=== PATIENT | male | born 1960 | race Caucasian/White ===

== ENCOUNTER 2017-03-02 13:44 | Inpatient (IN) | payer OTHER ==
[~2017-03-02] VITALS: Ht 175.3 cm; Wt 67.6 kg
--- NOTE | ~2017-03-02 | EKG ---
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
--- NOTE | ~2017-03-02 | HC ---
[facility] [place] [address] CONSULTATION Name: AUBREY TEAGUE Room #: 463-P [facility] IN M.R.#: [id number] Admission: 03/02/17 Attend Phys: Lakia Guerrero Discharge: 03/06/17 Date of : 56 Report #: [id number] THIS REPORT FOR: //name// CC: Nerissa Guerrero DATE OF CONSULT: 03/05/2017 HISTORY OF PRESENT ILLNESS: We were asked to see the patient by Dr. Miller. The patient is a 56-year-old with a loculated right pleural effusion. The patient was admitted on March 02 with complaints of cough and shortness of breath. We note the patient is status post right lower lobe lung resection in May 2016. This was done at [facility], according to the patient, and I have no specific information regarding his diagnosis, stage, or treatment beyond that. In any event, the patient presented to this institution. The patient was walking to the bus stop when he suddenly developed shortness of air. He called the emergency medical service and was transported to the Emergency Department. He states that his breathing improved at this place. He says that he is short of breath and that it "comes and goes." There is no history of fever, sputum production by my history, hemoptysis, or weight loss or change in appetite. PAST MEDICAL HISTORY: Includes chronic obstructive pulmonary disease, sleep apnea, bradycardia, gastroesophageal reflux disease, depression, anxiety, migraines, type 2 diabetes, hypertension, hyperlipidemia. ALLERGIES: TESSALON PERLES. MEDICATIONS: Includes Zofran, prednisone, fluticasone, salmeterol, ipratropium, albuterol, Cyclobenzaprine, metformin, amitriptyline, simvastatin, Lotensin, Celexa, clonazepam, famotidine, hydrocodone, aspirin. SOCIAL HISTORY: Past use of cigarettes, says he quit in May. Alcohol, denies. FAMILY HISTORY: Not significant. REVIEW OF SYSTEMS: CONSTITUTIONAL: Denies fever, chills, weight change. EYES: No vision changes, no eye pain. HEENT: Complains about ear wax buildup and recent headache. NECK: No neck pain, neck stiffness, sore throat. RESPIRATORY: As mentioned, shortness of breath and cough, no sputum production reported. CARDIAC: No angina, no palpitations. GASTROINTESTINAL: No nausea, vomiting, diarrhea or blood. GENITOURINARY: No burning, frequency, urgency or blood. MUSCULOSKELETAL: No back pain, muscle pain, joint pain. [address] [address] CONSULTATION Name: AUBREY TEAGUE Room #: 463-P [facility] IN M.R.#: [id number] Admission: 03/02/17 Attend Phys: Lakia Guerrero Discharge: 03/06/17 Date of : 56 Report #: [id number] SKIN: No rash or infection. NEUROLOGIC: As mentioned, headache. No motor or sensory dysfunction. HEMATOLOGIC: No swelling, no anemia. PHYSICAL EXAMINATION: VITAL SIGNS: Temperature 37.1, pulse rate 60, blood pressure 117/76, O2 sat 98 on room air. GENERAL: The patient is in bed, in no obvious distress. HEENT: No scleral icterus, no arcus, normocephalic, gaze conjugate. NECK: No lymphadenopathy, no bruit. CHEST: Clear to auscultation. No adventitious sounds. Well healed right posterolateral thoracotomy incision. CARDIOVASCULAR: Regular, no murmurs. ABDOMEN: Soft, no mass, no tenderness. EXTREMITIES: No clubbing, cyanosis or edema, 2+ distal pulses. NEUROLOGIC: No motor or sensory dysfunction. PSYCHIATRIC: The patient is somewhat contentious in my opinion and gives concrete answers, does respond to questions appropriately, but with a bit of an edge, seems to know where he is and is oriented otherwise. I reviewed the CT scan. There is a loculated pleural effusion in the lowest portion of the chest with some small air bubbles in it. However, the patient is not febrile and white blood cell count is not elevated. We do not have any studies between the current studies and studies before surgery. It is not clear that this is a new finding since surgery or rather could this be some sort of loculated effusion inadequately drained at that time. In any event, the patient does not appear to be sick in the sense that he does not have any fever, white blood cell count, obvious pulmonary dysfunction, evidence of malnutrition or concomitance of chronic disease such as lassitude and wasting. As such, I think it would be appropriate to follow this patient for now rather than perform surgery for what would purely be a radiologic indication. It is a privilege to participate in this challenging patient's care. Thank you for the consult. <ELECTRONICALLY SIGNED> By: Flaco Bartlett MD 03/09/17 1413 1029 1247 Flaco Bartlett MD /nt
--- NOTE | ~2017-03-02 | HC ---
[facility] [place] [address] CONSULTATION Name: AUBREY TEAGUE Room #: 463-P ADM IN M.R.#: [id number] Admission: 03/02/17 Attend Phys: Lakia Guerrero Discharge: Date of : 56 Report #: [id number] THIS REPORT FOR: //name// CC: Nerissa Guerrero INFECTIOUS DISEASES CONSULTATION REASON FOR CONSULTATION: I was asked to evaluate concerning possible right chest empyema. HISTORY OF PRESENT ILLNESS: The patient was a 56-year-old with history of COPD and lung cancer, status post right lower lobectomy in May of 2016. He presented with acute onset of shortness of breath, diaphoresis and headache. He called 911 and was then brought into the emergency room. He had evidence of a right chest loculated effusion. CT scan of the chest showed evidence of an effusion on the right with some scattered gas. He has had a previous right lower lobe resection for his lung cancer. Also evident on CT scan was mucus plugging in the right middle lobe. Apparently, he has been in remission since his lobectomy. No further chemotherapy. He is a past smoker. Denies any fever, chills or sweats. He has had no travel. No history of tuberculosis or HIV. ALLERGIES: TESSALON PERLES. MEDICATIONS: As noted on his MAR. Now on Zosyn. He was on prednisone 20 mg a day prior to his admission. PAST MEDICAL HISTORY: As noted above, with the addition of obstructive sleep apnea, bradycardia, gastroesophageal reflux, depression, anxiety, migraine headaches, diabetes, hypertension, hyperlipidemia, bilateral inguinal herniorrhaphy and umbilical herniorrhaphy. FAMILY HISTORY: Noncontributory. SOCIAL HISTORY: Smoked cigarettes. No significant alcohol intake. REVIEW OF SYSTEMS: No nausea, vomiting, diarrhea, dysuria or frequency. PHYSICAL EXAMINATION: VITAL SIGNS: Afebrile and hemodynamically stable on room air. GENERAL: He was in no distress. He just came back from a right chest thoracentesis which only produced a few drops of bloody fluid. LUNGS: He had decreased breath sounds on the right posterior chest. HEART: Regular. NECK: No adenopathy. SKIN: Unremarkable. [facility] [address] [place] [address] CONSULTATION Name: AUBREY TEAGUE Room #: 463-P [facility] IN .R.#: [id number] Admission: 03/02/17 Attend Phys: Lakia Guerrero Discharge: Date of : 56 Report #: [id number] HEENT: Unremarkable. ABDOMEN: Soft, nontender. No hepatosplenomegaly or mass. EXTREMITIES: Unremarkable. NEUROLOGICAL EXAMINATION: Normal. LABORATORY STUDIES: CT as noted above. Sodium 141, potassium 3.9, bicarbonate 24 and creatinine 0.6. Hemoglobin 16, white count 6.9 and platelet count 167,000. IMPRESSION AND PLAN: A 56-year-old with acute shortness of breath and finding of loculated right pleural effusion with evidence of gas in the region. We would be concerned about empyema or relapse of malignancy in this area. We will await aspiration of the fluid. I would consider CT-guided aspiration if the initial studies are unremarkable. Continue Zosyn for now. We will also check HIV, T-SPOT and sedimentation rate. <ELECTRONICALLY SIGNED> By: Gigi Miller MD 03/04/17 0933 1811 0113 Gigi Miller MD /nt
[~2017-03-02 13:44] MED LIST: ACID CONTROL20 MG PO; ADULT LOW DOSE81 MG PO; ADVAIR HFA 230M12 GM INH; AMITRIPTYLINE H25 M2 PO; AMOXICILLIN 50500 M1 PO; AMOXICILLIN500 M1 PO; ANTIVERT12.5 MG PO; ANTIVERT25 M1 PO; ASPIR 8181 M1; ASPIR 8181 MG PO; ASPIR-LOW81 MG PO; ASPIRIN EC81 M1 PO; ASPIRIN325 OR; BACTRIM DS TAB1 EACH PO; BENAZEPRIL HCL10 MG PO; BUTALB-ACETAMI1 EACH PO; CEFUROXIME250 MG PO; CELEBREX50 MG; CELEXA 20 MG TA20 M1 PO; CIPRODEX OTIC7.5 ML OTIC; CIPROFLOXACIN500 M1 PO; CIPROFLOXACIN500 M3 PO; CITRATE OF MAG296 ML PO; CLONAZEPAM 0.50.5 M1 PO; CLONAZEPAM 1 MG1 M1 PO; COLACE100 MG PO; COMBIVENT INH; COREG6.25 MG PO; DOXYCYCLINE 10100 M1 PO; ERYTHROMYCIN E3.5 G1 OP; FAMOTIDINE 20 M20 MG PO; FAMOTIDINE20 MG PO; FLEXERIL PO; GLUCOPHAGE500 MG PO; HYDROCODON-ACE1 EAC5 PO; IBUPROFEN 600600 M1 PO; IBUPROFEN 800800 M1 PO; IBUPROFEN 800800 MG PO; KETOROLAC TROME10 MG PO; LIPITOR10 MG; LISINOPRIL20 MG; MECLIZINE 25 MG25 M1 PO; MUCINEX DM TABL1 TA1 PO; NAPROSYN500 MG PO; NEXIUM40 MG PO; NITROGLYCERIN0.4 MG SL; NOHOMEMEDICATIONS; NORCO 10-325 T1 EACH PO; NORCO 5-325 TA1 EACH PO; OMEPRAZOLE 20 M20 M1; PEPCID20 MG PO; PREDNISONE 20 M20 M1 PO; PREDNISONE 20 M20 MG PO; PREDNISONE50 MG PO; PROTONIX40 MG PO; PROVENTIL HFA6.7 G1 INH; PYRIDIUM200 MG PO; SIMVASTATIN20 MG PO; TORADOL 10 MG T10 MG PO; TRAMADOL 50 MG50 MG; TRAMADOL 50 MG50 MG PO; TRIAMCINOLONE A15 G1 TP; ULTRAM 50MG TAB50 MG PO; VENTOLIN HFA 1818 GM INH; VENTOLIN HFA 1818 GM PO; VISTARIL 25 MG25 M1; ZOFRAN ODT4 MG PO; ZPAK PO
[2017-03-02 13:47] VITALS: BP 132/83
[2017-03-02 14:35] LABS: ABSOLUTE NEUTROPHILS 4.7 thou/uL (1.4-8.2); BASOPHILS 0.4 % (0.0-2.0); EOSINOPHILS 1.9 % (0.0-3.0); HEMATOCRIT 45.8 % (42.0-52.0); HEMOGLOBIN 16.1 gm/dL (14.0-18.0); LYMPHOCYTES 19.1 % (24.0-44.0); MANUAL DIFF NO; MCH 32.9 pg (26.0-34.0); MCHC 35.2 g/dL (28.0-37.0); MCV 93.7 fL (80.0-100.0); MONOCYTES 10.8 % (1.0-8.0); PLATELET COUNT 167 thou/uL (150-400); POLYS 67.8 % (36.0-66.0); RBC 4.89 mil/uL (4.50-6.00); RDW 14.2 % (10.5-14.5); WBC 6.9 thou/uL (4.0-11.0)
[2017-03-02 14:46] LABS: ANION GAP 9 mmol/L (7-16); BUN 20 mg/dL (7-18); CALCIUM 8.9 mg/dL (8.5-10.1); CHLORIDE 108 mmol/L (98-107); CO2 24 mmol/L (21-32); CREATININE 0.6 mg/dL (0.7-1.3); GLUCOSE 111 mg/dL (74-106); POTASSIUM 3.9 mmol/L (3.5-5.1); SODIUM 141 mmol/L (136-145); TROPONIN-I < 0.04 ng/mL (<0.04-0.07)
[2017-03-02 16:59] LABS: APTT 27.3 Seconds (24.5-32.8); PROTIME 10.4 Seconds (9.3-11.4)
[2017-03-02 17:29] VITALS: BP 128/79
[2017-03-02 19:30] VITALS: BP 123/78
[2017-03-02 23:06] VITALS: BP 110/69
[2017-03-03 04:03] VITALS: BP 102/61
[2017-03-03 06:08] LABS: GLYCOHEMOGLOBIN (HGB A1C) 5.4 % (4.8-5.6)
[2017-03-03 08:04] VITALS: BP 115/76
[2017-03-03 16:11] VITALS: BP 109/66
[2017-03-03 19:55] VITALS: BP 119/63
[2017-03-04 05:00] VITALS: BP 113/64
[2017-03-04 05:10] VITALS: BP 132/64
[2017-03-04 07:50] VITALS: BP 129/71
[2017-03-04 11:32] VITALS: BP 127/71
[2017-03-04 13:09] LABS: HIV ANTIBODY Non Reactive (Non Reactive)
[2017-03-04 16:07] VITALS: BP 124/79
[2017-03-04 19:40] VITALS: BP 139/73
[2017-03-05 03:45] VITALS: BP 102/72
[2017-03-05 09:01] VITALS: BP 114/77
[2017-03-05 12:37] VITALS: BP 117/76
[2017-03-05 15:44] VITALS: BP 132/75
[2017-03-05 19:59] VITALS: BP 131/75
[2017-03-06 03:17] VITALS: BP 114/68
[2017-03-06 08:00] VITALS: BP 126/84
[2017-03-06] MEDS ORDERED: AUGMENTIN 875875 MG PO (09:30)
[2017-03-06] MEDS ORDERED: CODEINE-GUAIFE120 ML PO (09:41)
[2017-03-06 10:03] VITALS: BP 126/84
[2017-03-09 09:16] LABS: NIL (NEGATIVE) CONTROL SPOT CT 0; PANEL A SPOT CT 0; PANEL B SPOT CT 0; POSITIVE CONTROL SPOT COUNT > 20; T-SPOT.TB Negative
== END 2017-03-06 10:37 | disposition home or self-care (01) | DRG 186 ==
LOC: ER 13:44 → 4W 16:33 → EROBS 16:33 → 4W 17:31
PROVIDERS: Emergency Medicine; Hospitalist; Specialist
PROC: 0W993ZX Drainage of Right Pleural Cavity, Percutaneous Approach, Diagnostic (ICD-10-PCS; principal; 2017-03-03)
PROC: BB4BZZZ Ultrasonography of Pleura (ICD-10-PCS; principal; 2017-03-03)
DX: J90 Pleural effusion, not elsewhere classified (principal); E43 Unspecified severe protein-calorie malnutrition; J44.9 Chronic obstructive pulmonary disease, unspecified; K21.9 Gastro-esophageal reflux disease without esophagitis; E78.5 Hyperlipidemia, unspecified; F32.9 Major depressive disorder, single episode, unspecified; F41.9 Anxiety disorder, unspecified; G47.33 Obstructive sleep apnea (adult) (pediatric); G43.909 Migraine, unspecified, not intractable, without status migrainosus; E11.9 Type 2 diabetes mellitus without complications; I10 Essential (primary) hypertension; Z68.22 Body mass index [BMI] 22.0-22.9, adult; Z87.891 Personal history of nicotine dependence; Z88.8 Allergy status to other drugs, medicaments and biological substances; Z85.118 Personal history of other malignant neoplasm of bronchus and lung; Z90.2 Acquired absence of lung [part of]; Z87.01 Personal history of pneumonia (recurrent); Z82.49 Family history of ischemic heart disease and other diseases of the circulatory system; Z83.3 Family history of diabetes mellitus; Z83.6 Family history of other diseases of the respiratory system
CPT/HCPCS: 10045

== ENCOUNTER 2017-05-05 10:33 | Emergency (ER) | payer OTHER ==
[~2017-05-05] VITALS: Ht 175.3 cm; Wt 68.0 kg
--- NOTE | ~2017-05-05 | EKG ---
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
[~2017-05-05 10:33] MED LIST changes: +AUGMENTIN 875875 MG PO; +CODEINE-GUAIFE120 ML PO
[2017-05-05 11:02] LABS: ABSOLUTE NEUTROPHILS 5.8 thou/uL (1.4-8.2); BASOPHILS 0.8 % (0.0-2.0); EOSINOPHILS 1.7 % (0.0-3.0); HEMOGLOBIN 15.3 gm/dL (14.0-18.0); LYMPHOCYTES 16.5 % (24.0-44.0); MCH 33.2 pg (26.0-34.0); MCHC 34.7 g/dL (28.0-37.0); MCV 95.7 fL (80.0-100.0); MONOCYTES 10.4 % (1.0-8.0); PLATELET COUNT 289 thou/uL (150-400); POLYS 70.6 % (36.0-66.0); RBC 4.59 mil/uL (4.50-6.00); RDW 13.9 % (10.5-14.5); WBC 8.3 thou/uL (4.0-11.0)
[2017-05-05 11:06] LABS: MANUAL DIFF NO
[2017-05-05 11:08] LABS: ANION GAP 5 mmol/L (7-16); BUN 13 mg/dL (7-18); CALCIUM 9.6 mg/dL (8.5-10.1); CHLORIDE 106 mmol/L (98-107); CO2 28 mmol/L (21-32); CREATININE 0.7 mg/dL (0.7-1.3); GLUCOSE 142 mg/dL (74-106); POTASSIUM 3.7 mmol/L (3.5-5.1); SODIUM 139 mmol/L (136-145)
[2017-05-05 11:16] LABS: TROPONIN-I < 0.04 ng/mL (<0.04-0.07)
[2017-05-05] MEDS ORDERED: NORCO 5-325 TA1 EACH PO (12:22)
[2017-05-05] MEDS ORDERED: PREDNISONE 10 M10 MG PO (12:31)
[2017-05-05 12:38] VITALS: BP 125/85
== END 2017-05-05 12:42 | disposition home or self-care (01) ==
LOC: ER 10:33
PROVIDERS: Emergency Medicine
DX: R06.02 Shortness of breath (principal); M54.9 Dorsalgia, unspecified; J44.9 Chronic obstructive pulmonary disease, unspecified; K21.9 Gastro-esophageal reflux disease without esophagitis; F41.9 Anxiety disorder, unspecified; F32.9 Major depressive disorder, single episode, unspecified; E11.9 Type 2 diabetes mellitus without complications; I10 Essential (primary) hypertension; E78.5 Hyperlipidemia, unspecified; Z98.890 Other specified postprocedural states; Z88.8 Allergy status to other drugs, medicaments and biological substances; Z87.891 Personal history of nicotine dependence

== ENCOUNTER 2017-05-11 15:33 | Inpatient (IN) | payer OTHER ==
[~2017-05-11] VITALS: Ht 175.3 cm; Wt 67.5 kg
--- NOTE | ~2017-05-11 | 2DMMODE ---
[facility] [place] [address] 2 D/M-MODE ECHOCARDIOGRAM Name: AUBREY TEAGUE Room #: 450-P ADM IN M.R.#: [id number] Admission: 05/11/17 Attend Phys: Den Pillai Discharge: Date of : 56 Date of Service: 05/12/17 1643 Report #: [id number] THIS REPORT FOR: //name// ADDENDUM APPROVED REPORT Study performed: 05/12/2017 08:50:46 EXAM: Comprehensive 2D, Doppler, and color-flow Echocardiogram Patient Location: Bedside Room #: [facility] Status: routine Other Information Study Quality: Good Indications CVA/TIA Hx COPD, DM, HTN, HLP Tricuspid Valve RAP Estimate: 5.00 mmHg TR Peak Gr.: 21.00 mmHg PA Pressure: 26.00 mmHg Left Ventricle The left ventricle is normal size. There is normal LV segmental wall motion. Mild concentric left ventricular hypertrophy. The left ventricular systolic function is normal. The left ventricular ejection fraction is within the normal range. LVEF is 55-60%. Grade I - abnormal relaxation pattern. Right Ventricle The right ventricle is normal size. The right ventricular systolic function is normal. Atria The left atrium size is normal. Injection of bubbles documented no interatrial shunt. The right atrium size is normal. Aortic Valve Aortic valve leaflets are mildly sclerotic Trace aortic regurgitation. There is no aortic valvular stenosis. Mitral Valve The mitral valve is normal in structure. Trace mitral regurgitation. [facility] [address] [place] [address] 2 D/M-MODE ECHOCARDIOGRAM Name: AUBREY TEAGUE Room #: [facility]- ADM IN M.R.#: [id number] Admission: 05/11/17 Attend Phys: Den Pillai Discharge: Date of : 56 Date of Service: 05/12/17 1643 Report #: [id number] No evidence of mitral valve stenosis. Tricuspid Valve The tricuspid valve is normal in structure. Trace tricuspid regurgitation. Pulmonic Valve The pulmonary valve is normal in structure. Trace pulmonic regurgitation. Great Vessels The aortic root is normal in size. The ascending aorta is normal in size. IVC is normal in size and collapses >50% with inspiration. Pericardium There is no pericardial effusion. <Conclusion> The left ventricular systolic function is normal. There is normal LV segmental wall motion. LVEF is 55-60%. Grade I diastolic dysfunction Aortic valve leaflets are mildly sclerotic, no aortic valvular stenosis. The mitral valve is normal in structure. trace mitral regurgitation. Pulmonary artery pressure could not be reliably ascertained There is no pericardial effusion. Addendum: Contrast bubble injection demonstrated right to left shunting consistent with a patent foramen ovale <ELECTRONICALLY SIGNED> By: Abimael Montano MD, [facility] 05/12/171642 42 42 Abimael Montano MD, [facility] /INF
--- NOTE | ~2017-05-11 | EKG ---
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
--- NOTE | ~2017-05-11 | HC ---
[facility] [place] [address] CONSULTATION Name: AUBREY TEAGUE Room #: 450- ADM IN M.R.#: [id number] Admission: 05/11/17 Attend Phys: Edwin Camp MD Discharge: Date of : 56 Report #: [id number] THIS REPORT FOR: //name// CC: Nerissa Camp DATE OF CONSULTATION: 05/11/2017. HISTORY OF PRESENT ILLNESS: This is a 56-year-old male patient who was evaluated by me as a stroke protocol. The first call I got this patient was around 5:15 or so. The patient was described to me as paresthesias and some numbness on the left side with NIH stroke scale of 2. I told them that I will come and evaluate him immediately to determine if he is a TPA candidate. I went to the Emergency Room within a few minutes when the patient had gone for a CT angio and I could not see him. I asked them to call me back and page me when he comes back from CT angio, but I did not hear back and came back to emergency to check on him, but I was told that he has gone for MRI. So, I could not see this patient till the MRI is done, but since then I have seen the patient, I have reviewed the CT scan films, I have reviewed a CT angio, CT perfusion and MRI of the brain. I have discussed this patient with Dr. Camp. The patient's history is not clear. He initially told Dr. Camp that the symptoms are going on from 2:30, but when I asked him, he said symptoms may have been going longer than that. So time of onset is not clear in spite of the fact this patient initially indicated that it was around 2:30, but it could have been even prior to that. His symptoms are mostly the numbness on the left side. They had noticed hemianopsia, but I am not certain about hemianopsia because on my repeated examination, he does not have any hemianopsia. He does not complain of any neck pain, but is complaining of some pain in the lower back area. He indicates the pain is moderately severe. He indicated that he still has some weakness on the left side. REVIEW OF SYSTEMS: Indicate that he has COPD. He has sleep apnea. He denies any depression and anxiety to me, but to Dr. Camp he has indicated that he has depression, anxiety. He has diabetes. He said he does not get hypoglycemia. He does have a history of hyperlipidemia and hypertension. Blood pressure here is normal. This was his relevant 14-point review of system. PAST MEDICAL HISTORY: Positive for COPD and smoking. FAMILY HISTORY: Negative for early age stroke. SOCIAL HISTORY: He used to smoke, but does not smoke anymore, his lung was partly removed because of cancer in [facility] last year. He does not have any history of alcohol abuse. PHYSICAL EXAMINATION: Indicate that I examined him multiple time, he is alert and responsive, he can follow simple commands. His speech, concentration, fund [facility] [address] [place] [address] CONSULTATION Name: HOAUBREY MICKEY Room #: 450-P [facility] IN M.R.#: [id number] Admission: 05/11/17 Attend Phys: Edwin Camp MD Discharge: Date of : 56 Report #: [id number] of knowledge and memory is at his baseline. Cranial nerve examination appear unremarkable. He has no facial weakness. He did have some weakness on the left upper and left lower extremity, but he can move it against gravity. He indicates he can appreciate the position sense, it feels different on the left side as compared to the right side. His reflexes are symmetrical. He does not have any clear cut cerebellar sign. His heart sounds are unremarkable and there is really no murmur there. He does have some rhonchi, but no respiratory difficulty. He is an average built individual who does not have any dysmorphic features of eyes, ears and face. His hearing is adequate, his vision is adequate, he has no meningeal sign. His blood pressure is 122/74, respiration is 20, and pulse is 80. LABORATORY DATA: Indicate a white count of 11.2. His sodium is 138. CT angiogram was reviewed and I reviewed the MRI and he has no evidence of any stroke on any of those images. IMPRESSION AND PLAN: 1. This patient presented with a stroke-like symptoms. Time of onset is not totally clear. It is either 2:30 or earlier than that. First time I was able to see this patient was around 6:30 or so. I reviewed all his films. I do not see any evidence of any abnormalities on those films neither does the radiologist. I did discuss with him that he does have an option of TPA, but his deficit is mild, and he does not have any evidence for a stroke and he decided to stay without TPA. That is a reasonable approach, although it is very difficult to be certain on this patient. We will give him some fluid to increase his blood pressure somewhat. I asked the nurses to do the bed side swallow and then that can feed him. We will watch him closely. I will go ahead and do an MRI of the C-spine in this patient. 2. He is complaining of multiple other symptoms including pain in the back and I will defer that evaluation and management to the admitting physician. Patient was seen multiple times after that and his exam is mostly unchanged but impersistent. Talked to and checked out to Dr Zepeda this morning. More than 50 minutes of face to face time was spent taking care of this patient and majority of that time was spent counseling this patient on multiple occasions about his tests his options Thank you very much for this referral. <ELECTRONICALLY SIGNED> By: Bob Dickinson MD 05/12/17 1017 [id number] Bob Dickinson MD /nt
--- NOTE | ~2017-05-11 | H ---
[facility] [place] [address] HISTORY AND PHYSICAL Name: AUBREY TEAGUE Room #: 450-P [facility] M.R.#: [id number] Admission: 05/11/17 Attend Phys: Edwin Camp MD Discharge: Date of : 56 Report #: [id number] THIS REPORT FOR: //name// CC: Nerissa King DO Edwin Camp DATE OF SERVICE: 05/11/2017 CHIEF COMPLAINT: Left-sided numbness and left-sided weakness. HISTORY OF PRESENT ILLNESS: The patient is a 56-year-old male with history of hypertension, diabetes, COPD, quit smoking a year ago, presented to the emergency room complaining of left-sided numbness and weakness. Symptoms started at around 2:30 p.m. while walking to the bus stop. On arrival to the emergency room, he had numbness in his left upper and lower extremity. His weakness was 4/5 in upper and lower extremity. Initially, a stroke code was called. I did discuss this with Dr. Clark in the emergency room and he has planned to talk to neurologist vault person again. The patient denies any headache, no visual disturbance. No facial asymmetry. No speech disturbance. PAST MEDICAL HISTORY: Significant for COPD, sleep apnea, bradycardia, gastroesophageal reflux disease, depression, anxiety, migraine, type 2 diabetes, hypertension, and hyperlipidemia. PAST SURGICAL HISTORY: Includes bilateral inguinal hernia repair, umbilical hernia repair, and right lung removed on 06/12/2016. ALLERGIES: To TESSALON PERLES. HOME MEDICATIONS: Reviewed, please look at the nursing documentation. SOCIAL HISTORY: Used to smoke a pack a day for several years, stopped smoking 1 year ago. No history of alcohol abuse or illicit drug abuse. FAMILY HISTORY: Significant for hypertension and diabetes. REVIEW OF SYSTEMS: CONSTITUTIONAL: No fever or chills. No visual changes. No weight loss or weight gain. THROAT: Denies any sore throat. CARDIOVASCULAR: No chest pain, dizziness, or palpitations. RESPIRATORY: No cough or expectoration. GASTROINTESTINAL: No nausea, vomiting, or abdominal pain. GENITOURINARY: No dysuria or hematuria. NEUROLOGIC: As above. [facility] [address] [place] [address] HISTORY AND PHYSICAL Name: AUBREY TEAGUE Room #: [address] [place] [address].#: [id number] Admission: 05/11/17 Attend Phys: Edwin Camp MD Discharge: Date of : 56 Report #: [id number] PSYCHIATRIC: No anxiety or depression. SKIN: The patient complains of rash in his upper and lower extremities for the last 2 weeks, has been associated with itching. The 12-point review of system is negative other than the positive and negative dictated in the history of present illness and the review of system. PHYSICAL EXAMINATION: VITAL SIGNS: Blood pressure is 130/88, heart rate of 75 per minute, afebrile. GENERAL: The patient is awake and alert, not in acute respiratory distress. EYES: Pupils are equal and reactive to light. THROAT: Appears normal. NECK: Supple, no JVD, no bruit, no lymphadenopathy. CARDIOVASCULAR SYSTEM: S1, S2, negative S3, no murmur. CHEST: Bilateral air entry present. Clear on auscultation. ABDOMEN: Soft, bowel sounds present, no mass, no organomegaly, no tenderness. PERIPHERY: No pedal edema. No calf tenderness. Dorsalis pedis 1+. NEUROLOGIC: No facial asymmetry noted. Pupils are equal and reactive to light. Extraocular movements are intact. Power is 5/5 in upper and lower extremity on the right side. On the left side, his power is 4/5 in upper and lower extremities. LABORATORY DATA: Reviewed. His white count is 11.2, normal hemoglobin, hematocrit and platelets. His chemistry showed a potassium of 3.7, blood glucose was 99. AST and ALT are within normal limit. CT of the brain showed no acute abnormality. Chest x-ray showed moderate inspiration, mild basilar atelectasis, possible small right effusion. EKG shows sinus rhythm, minimal ST elevation in anterior lead. No significant T-wave changes. ASSESSMENT: 1. Left-sided numbness and weakness, possible transient ischemic attack/cerebrovascular accident. Dr. Clark will be contacting the neurologist to discuss about possible TPA. The patient will be admitted to telemetry, will undergo stroke workup including MRI/MRA of the brain, carotid Doppler and echocardiogram, he will be placed on frequent neuro check. We will also consult physical and occupational therapy and speech therapy. We will check his lipids in the morning. 2. Diabetes. Check A1c level. He will also be placed on a sliding scale insulin. The patient will be continued on his metformin. 3. Skin rash. He has allergic rash. There is a maculopapular rash on his upper and lower extremities. It is not very clear what he is allergic to. We will start him on p.o. prednisone and p.r.n. Benadryl. 4. Deep venous thrombosis prophylaxis, SCD on the legs have been ordered for deep venous thrombosis prophylaxis. [facility] [address] [place] [address] HISTORY AND PHYSICAL Name: AUBREY TEAGUE Room #: 450-P [facility] Rolando#: [id number] Admission: 05/11/17 Attend Phys: Edwin Capm MD Discharge: Date of : 56 Report #: [id number] 5. History of hypertension. We will monitor closely hypertension because of possibility of cerebrovascular accident. Treatment plan has been explained to the patient in detail. 6. Chronic obstructive pulmonary disease. The patient will be continued on his present Combivent and Advair. <ELECTRONICALLY SIGNED> By: Edwin Camp MD 05/11/17 [id number] 181 Edwin Camp MD /nt
[~2017-05-11 15:33] MED LIST changes: +PREDNISONE 10 M10 MG PO
[2017-05-11 15:36] VITALS: BP 131/90
[2017-05-11 16:03] LABS: ABSOLUTE NEUTROPHILS 8.3 thou/uL (1.4-8.2); BASOPHILS 0.6 % (0.0-2.0); HEMATOCRIT 46.1 % (42.0-52.0); LYMPHOCYTES 17.1 % (24.0-44.0); MANUAL DIFF NO; MCH 33.2 pg (26.0-34.0); MCHC 34.6 g/dL (28.0-37.0); MONOCYTES 7.5 % (1.0-8.0); PLATELET COUNT 240 thou/uL (150-400); POLYS 73.8 % (36.0-66.0); WBC 11.2 thou/uL (4.0-11.0)
[2017-05-11 16:07] LABS: ANION GAP 5 mmol/L (7-16); BUN 15 mg/dL (7-18); CALCIUM 9.7 mg/dL (8.5-10.1); CHLORIDE 104 mmol/L (98-107); CO2 29 mmol/L (21-32); CREATININE 0.7 mg/dL (0.7-1.3); GLUCOSE 99 mg/dL (74-106); POTASSIUM 3.7 mmol/L (3.5-5.1); SODIUM 138 mmol/L (136-145)
[2017-05-11 16:14] LABS: ALBUMIN 3.9 g/dL (3.4-5.0); ALKALINE PHOSPHATASE 88 U/L (46-116); SGOT 14 U/L (15-37); SGPT 16 U/L (30-65); TOTAL BILIRUBIN 0.4 mg/dL (<0.1-1.0); TOTAL PROTEIN 7.9 g/dL (6.4-8.2); TROPONIN-I < 0.04 ng/mL (<0.04-0.07)
[2017-05-11 18:20] VITALS: BP 122/74
[2017-05-11 19:11] VITALS: BP 130/89
[2017-05-11 23:54] VITALS: BP 103/63
[2017-05-12 03:25] VITALS: BP 98/69
[2017-05-12 06:04] LABS: ABSOLUTE NEUTROPHILS 9.5 thou/uL (1.4-8.2); BASOPHILS 0.1 % (0.0-2.0); EOSINOPHILS 0.2 % (0.0-3.0); HEMATOCRIT 43.8 % (42.0-52.0); LYMPHOCYTES 10.1 % (24.0-44.0); MCH 32.8 pg (26.0-34.0); MCHC 34.3 g/dL (28.0-37.0); MCV 95.5 fL (80.0-100.0); MONOCYTES 1.9 % (1.0-8.0); PLATELET COUNT 218 thou/uL (150-400); POLYS 87.7 % (36.0-66.0); RBC 4.58 mil/uL (4.50-6.00); RDW 13.8 % (10.5-14.5); WBC 10.9 thou/uL (4.0-11.0)
[2017-05-12 06:06] LABS: MANUAL DIFF NO
[2017-05-12 06:10] LABS: GLYCOHEMOGLOBIN (HGB A1C) 5.3 % (4.8-5.6)
[2017-05-12 06:24] LABS: ANION GAP 5 mmol/L (7-16); BUN 22 mg/dL (7-18); CALCIUM 9.1 mg/dL (8.5-10.1); CHLORIDE 101 mmol/L (98-107); CHOLESTEROL 175 mg/dL (<200); CO2 29 mmol/L (21-32); CREATININE 0.8 mg/dL (0.7-1.3); GLUCOSE 142 mg/dL (74-106); HDL CHOLESTEROL 59 mg/dL (>40); LDL CHOLESTEROL 103 mg/dL (<100); MAGNESIUM 2.1 mg/dL (1.8-2.4); SODIUM 135 mmol/L (136-145); TRIGLYCERIDE 67 mg/dL (<150); VLDL 13 mg/dL (<40)
[2017-05-12 06:25] LABS: POTASSIUM 4.7 mmol/L (3.5-5.1); SERUM ASSESSMENT Clear
[2017-05-12 07:56] VITALS: BP 120/77
[2017-05-12 11:54] VITALS: BP 116/74
[2017-05-12 15:53] VITALS: BP 130/72
[2017-05-12 19:18] VITALS: BP 120/74
[2017-05-13 07:08] VITALS: BP 134/84
[2017-05-13 11:38] VITALS: BP 131/86
[2017-05-13] MEDS ORDERED: ASPIRIN EC325 M1 PO (15:22)
[2017-05-13] MEDS ORDERED: GLUCOPHAGE500 MG PO (15:22)
[2017-05-13 15:43] VITALS: BP 123/90
[2017-05-13 17:38] VITALS: BP 123/90
[2017-05-14 16:11] LABS: ALPHA TOCOPHEROL 13.1 mg/L (5.3-17.5); PROTEIN C ANTIGEN* 89 % (60-150)
[2017-05-16 01:10] LABS: DIL. RUSSELL VIPER VENOM 30.4 sec (0.0-47.0)
== END 2017-05-13 17:45 | disposition home or self-care (01) | DRG 69 ==
LOC: ER 15:33 → EROBS 16:57 → 4W 16:57
PROVIDERS: Emergency Medicine; Internal Medicine; Psychiatry & Neurology Neurology
DX: G45.9 Transient cerebral ischemic attack, unspecified (principal); J44.9 Chronic obstructive pulmonary disease, unspecified; K21.9 Gastro-esophageal reflux disease without esophagitis; F32.9 Major depressive disorder, single episode, unspecified; F41.9 Anxiety disorder, unspecified; I10 Essential (primary) hypertension; E78.5 Hyperlipidemia, unspecified; R20.9 Unspecified disturbances of skin sensation; E11.9 Type 2 diabetes mellitus without complications; G43.909 Migraine, unspecified, not intractable, without status migrainosus; Z82.49 Family history of ischemic heart disease and other diseases of the circulatory system; Z88.8 Allergy status to other drugs, medicaments and biological substances; Z83.3 Family history of diabetes mellitus; Z79.899 Other long term (current) drug therapy; Z87.891 Personal history of nicotine dependence; Z79.82 Long term (current) use of aspirin; Z85.118 Personal history of other malignant neoplasm of bronchus and lung; Z92.21 Personal history of antineoplastic chemotherapy; Z92.3 Personal history of irradiation

== ENCOUNTER 2017-07-20 12:30 | Inpatient (IN) | payer OTHER ==
[~2017-07-20] VITALS: Ht 175.3 cm; Wt 78.2 kg
[2017-07-20] VITALS (16 sets, daily range): BP systolic 114–137; BP diastolic 67–93
--- NOTE | ~2017-07-20 | HC ---
[facility] [place] [address] CONSULTATION Name: AUBREY TEAGUE Room #: 239-P ADM IN M.R.#: [id number] Admission: 07/20/17 Attend Phys: Real Jones MD Discharge: Date of : 56 Report #: [id number] THIS REPORT FOR: //name// CC: Nerissa Jones DATE OF SERVICE: 07/21/2017 HISTORY OF PRESENT ILLNESS: The patient is a 56-year-old right-handed white male who is admitted with left-sided numbness, tingling and some discomfort. There was concern regarding a possible stroke and TPA was given. He was noted to have some left shoulder discomfort and apparently he had a fall the night before. He has been seen by Neurology. Working diagnosis is an acute CVA, status post TPA. MRI of the brain is pending. We are seeing him in rehabilitation medicine consultation. PAST MEDICAL HISTORY: Includes hypertension, tobaccoism, COPD, sleep apnea, bradycardic, GERD, depression, anxiety, migraines, hyperlipidemia and right lower lobe lung removed in 05/2016 for cancer. SOCIAL HISTORY: Lives in a house with friends/roommates. Premorbidly independent without gait aids for mobility and ADLs. MEDICATIONS: Please see the full medication listing. HABITS: Positive for tobacco daily, one-half pack per day for 30 years. REVIEW OF SYSTEMS: No current complaints of chest pain, shortness of breath or abdominal discomfort. He thinks he is moving the left side a little better. PHYSICAL EXAMINATION: GENERAL: He is a 56-year-old white male, a little cantankerous but in no obvious distress. VITAL SIGNS: Last recorded temperature 98.1, pulse 57, respirations 19 and blood pressure 113/93. NEUROLOGICAL: He is alert, follows basic commands. EOMs appeared full. Facies are symmetric. He has functional range of motion and strength of the right upper and right lower extremity without obvious focal weakness. He moves the left upper extremity quite well. He may have slight weakness, may be 5-/5, but overall appears reasonably symmetric. I could not detect any obvious focal weakness of the left lower extremity. DTRs were 1. Sensory examination appeared intact to simultaneous stimulation. ASSESSMENT: A 56-year-old white male with the following problem list: 1. Initial left-sided weakness that appears to be improving. 2. MRI of the brain, rule out possible stroke or possible metastasis from his [address] [address] CONSULTATION Name: AUBREY TEAGUE Room #: 239-P [facility] [place] ..#: [id number] Admission: 07/20/17 Attend Phys: Real Jones MD Discharge: Date of : 56 Report #: [id number] history of lung cancer. 3. The patient is status post tissue plasminogen activator. 4. Tobacco abuse. 5. Hypertension. 6. Hyperlipidemia. 7. Chronic obstructive pulmonary disease. 8. Shoulder discomfort, question of a fall prior to admission. PLAN: Neurologic up underway as noted. Therapies will be evaluating him. We will be glad to follow regarding rehab therapy needs. By: [id number] Geremias Bridges MD /
--- NOTE | ~2017-07-20 | EKG ---
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 : 1960 Requested By: Ed Gomez Order Number: [id number] MD: Abimael Montano Measurements Intervals [place] Rate: 80 P: 8 HI: 185 QRS: -19 QRSD: 82 T: 9 QT: 370 QTc: 427 Interpretive Statements Sinus rhythm No significant abnormality Compared to ECG 05/11/2017 16:09:46 No significant change was found Electronically Signed On 07-21-2017 8:23:41 CDT by Abimael Montano [email or web address] <ELECTRONICALLY SIGNED> By: Abimael Montano MD, [facility] 07/21/17 0823 1324 1324 Abimael Montano MD, [facility] /EPI
[~2017-07-20 12:30] MED LIST changes: +ASPIRIN EC325 M1 PO
[2017-07-20 13:24] LABS: ABSOLUTE NEUTROPHILS 5.6 thou/uL (1.4-8.2); EOSINOPHILS 2.5 % (0.0-3.0); HEMATOCRIT 44.4 % (42.0-52.0); HEMOGLOBIN 15.8 gm/dL (14.0-18.0); LYMPHOCYTES 19.4 % (24.0-44.0); MCH 34.2 pg (26.0-34.0); MCHC 35.5 g/dL (28.0-37.0); MCV 96.3 fL (80.0-100.0); MONOCYTES 9.4 % (1.0-8.0); PLATELET COUNT 189 thou/uL (150-400); POLYS 67.7 % (36.0-66.0); RBC 4.61 mil/uL (4.50-6.00); RDW 14.4 % (10.5-14.5); WBC 8.3 thou/uL (4.0-11.0)
[2017-07-20 13:25] LABS: MANUAL DIFF NO
[2017-07-20 13:26] LABS: CALCIUM 9.9 mg/dL (8.5-10.1); CREATININE 0.9 mg/dL (0.7-1.3); POTASSIUM 3.9 mmol/L (3.5-5.1)
[2017-07-20 13:32] LABS: ALBUMIN 3.9 g/dL (3.4-5.0); TOTAL BILIRUBIN 0.7 mg/dL (<0.1-1.0); TOTAL PROTEIN 7.4 g/dL (6.4-8.2)
[2017-07-20 13:43] LABS: PROTIME 10.2 Seconds (9.3-11.4)
[2017-07-20] MEDS ORDERED: FLOMAX0.4 MG PO (14:16)
[2017-07-20] MEDS ORDERED: CELEXA20 MG PO (14:17)
[2017-07-20] MEDS ORDERED: KLONOPIN1 MG PO (14:17)
[2017-07-21] VITALS (13 sets, daily range): BP systolic 113–143; BP diastolic 62–112
[2017-07-21 04:17] LABS: ALBUMIN 3.3 g/dL (3.4-5.0); ALKALINE PHOSPHATASE 76 U/L (46-116); ANION GAP 8 mmol/L (7-16); BUN 22 mg/dL (7-18); CALCIUM 9.3 mg/dL (8.5-10.1); CHLORIDE 106 mmol/L (98-107); CHOLESTEROL 159 mg/dL (<200); CO2 24 mmol/L (21-32); CREATININE 0.7 mg/dL (0.7-1.3); GLUCOSE 153 mg/dL (74-106); HDL CHOLESTEROL 61 mg/dL (>40); LDL CHOLESTEROL 86 mg/dL (<100); POTASSIUM 4.1 mmol/L (3.5-5.1); SGOT 10 U/L (15-37); SGPT 14 U/L (30-65); SODIUM 138 mmol/L (136-145); TC:HDL 2.6 Ratio (Not establshd); TOTAL BILIRUBIN 0.4 mg/dL (<0.1-1.0); TOTAL PROTEIN 6.4 g/dL (6.4-8.2); TRIGLYCERIDE 63 mg/dL (<150); VLDL 13 mg/dL (<40)
[2017-07-21 04:20] LABS: SERUM ASSESSMENT Clear
[2017-07-21 04:24] LABS: HEMATOCRIT 44.1 % (42.0-52.0); HEMOGLOBIN 15.2 gm/dL (14.0-18.0); MCH 33.6 pg (26.0-34.0); MCHC 34.4 g/dL (28.0-37.0); MCV 97.6 fL (80.0-100.0); RBC 4.52 mil/uL (4.50-6.00); RDW 14.5 % (10.5-14.5); WBC 6.9 thou/uL (4.0-11.0)
[2017-07-22 02:11] LABS: GLYCOHEMOGLOBIN (HGB A1C) 5.2 % (4.8-5.6)
[2017-07-22 04:29] VITALS: BP 105/72
[2017-07-22 08:01] VITALS: BP 105/64
[2017-07-22 11:33] VITALS: BP 123/77
[2017-07-22 15:31] VITALS: BP 143/77
[2017-07-22 19:41] VITALS: BP 125/83
[2017-07-23 04:30] VITALS: BP 116/74
[2017-07-23 07:30] VITALS: BP 117/82
[2017-07-23 13:20] VITALS: BP 136/74
[2017-07-23 13:28] VITALS: BP 117/82
== END 2017-07-23 15:07 | disposition home or self-care (01) | DRG 62 ==
LOC: ER 12:30 → EROBS 14:31 → ICU 14:31 → 4W 14:31 → ICU 16:46 → 4W 07-21 15:15
PROVIDERS: Family Medicine; Physician Assistant
DX: I63.9 Cerebral infarction, unspecified (principal); E44.0 Moderate protein-calorie malnutrition; J44.9 Chronic obstructive pulmonary disease, unspecified; K21.9 Gastro-esophageal reflux disease without esophagitis; F41.9 Anxiety disorder, unspecified; F32.9 Major depressive disorder, single episode, unspecified; G43.909 Migraine, unspecified, not intractable, without status migrainosus; E11.9 Type 2 diabetes mellitus without complications; I10 Essential (primary) hypertension; E78.5 Hyperlipidemia, unspecified; F17.210 Nicotine dependence, cigarettes, uncomplicated; Z68.25 Body mass index [BMI] 25.0-25.9, adult; Z79.82 Long term (current) use of aspirin; Z79.899 Other long term (current) drug therapy; Z88.8 Allergy status to other drugs, medicaments and biological substances; Z82.49 Family history of ischemic heart disease and other diseases of the circulatory system; Z83.3 Family history of diabetes mellitus; Z83.6 Family history of other diseases of the respiratory system
CPT/HCPCS: 10047; 10078

== ENCOUNTER 2017-12-03 07:29 | Inpatient (IN) | payer OTHER ==
[~2017-12-03] VITALS: Ht 172.7 cm; Wt 83.5 kg
[2017-12-03] VITALS (22 sets, daily range): BP systolic 98–156; BP diastolic 55–101
--- NOTE | ~2017-12-03 | EKG ---
[place] [address] [place] [address] ELECTROCARDIOGRAM REPORT Name: AUBREY TEAGUE Room #: PRE M.R.#: [id number] Admission: Attend Phys: Discharge: Date of : 56 Report #: [id number] THIS REPORT FOR: //name// [facility] ED Test Date: 2017-12-03 Test Time: 07:36:02 Pat Name: AUBREY TEAGUE Department: Room: Gender: M Guest Service Aide: [facility] : 1960 Requested By: Soham Colón Order Number: [id number] MD: Abimael Montano Measurements Intervals [place] Rate: 84 P: 36 CA: 207 QRS: -13 QRSD: 86 T: 26 QT: 353 QTc: 418 Interpretive Statements Sinus rhythm Septal infarct, age indeterminate Compared to ECG 07/20/2017 13:24:00 ST (T wave) deviation now present septal Q waves are now present Electronically Signed On 12-03-2017 8:07:53 BUILDING ARCHITECTURAL DESIGNER by Abimael Montano [email or web address] <ELECTRONICALLY SIGNED> By: Abimael Montano MD, [facility] 12/03/17 0807 0736 0736 Abimael Montano MD, [facility] /EPI
--- NOTE | ~2017-12-03 | HC ---
[facility] [place] [address] CONSULTATION Name: AUBREY TEAGUE Room #: 401-I DIS IN M.R.#: [id number] Admission: 12/03/17 Attend Phys: Clayton Carlisle MD Discharge: 12/07/17 Date of : 56 Report #: [id number] THIS REPORT FOR: //name// CC: Nerissa Carlisle DATE OF SERVICE: 12/06/2017 IDENTIFICATION: Psychiatric consultation is requested due to concerns for malingering. HISTORY OF PRESENT ILLNESS: The patient is a 57-year-old homeless male who reports a past history of major depression and generalized anxiety. He denies any history of renata, psychosis or substance abuse. He does not currently follow up with a psychiatrist. The patient presented to the hospital in April and then again on this occasion with complaints of left-sided weakness and numbness. Neurological workup was negative in April, July and again on this occasion. There have been significant concerns for malingering. The patient demonstrated strong desire to be admitted in the hospital and used phrases such as "how long do you think I will be in hospital a couple of days at least? He has also asked to have documentation supporting him getting a private room in the senior care due to his "condition" He has been poorly cooperative with history taking. He has demonstrated intact memory, and no cognitive impairments except that he has stated he does not recall any details of prior hospital stays. Therefore, there are documented concerns that he is malingering his neurological complaints for secondary gain of housing. On interview, the patient himself denies all psychiatric Complaints. ALLERGIES: BENZONATATE. MEDICATIONS: Reviewed and include Celexa 20 mg daily, Klonopin 1 mg 3 times daily, amitriptyline 25 mg at bedtime. PAST MEDICAL HISTORY: Hypertension, hyperlipidemia, diabetes, PFO, COPD, history of lung cancer. FAMILY HISTORY: Noncontributory. SOCIAL HISTORY: The patient is essentially homeless. Reportedly, recently living with friends. He is unemployed. Full code. Positive cigarette smoking history. MENTAL STATUS EXAMINATION: Fair hygiene, polite, but inhibited on interview. [facility] [address] [place] [address] CONSULTATION Name: AUBREY TEAGUE MICKEY Room #: 401-I [facility] IN M.R.#: [id number] Admission: 12/03/17 Attend Phys: Clayton Carlisle MD Discharge: 12/07/17 Date of : 56 Report #: [id number] Good eye contact, decreased amount of spontaneous speech. Thought process concrete. No hallucinations or delusions. No suicidal or homicidal ideation. Affect calm and euthymic, blunted. Alert and oriented x 3. Insight and judgment fair. DIAGNOSIS: Major depressive disorder, recurrent, moderate. Rule out malingering. PLAN: Diagnoses of malingering/conversion disorder are both always diagnoses of exclusion. There is no psychiatric interview that can definitively diagnose these conditions. A thorough neurological and medical workup must be performed in order to rule out serious acute medical abnormality. Only when workup is negative a diagnosis of malingering be made. I agree that this is a difficult case given patient's vascular risk factors. I do agree that it is suspicious that he may be malingering given what is documented above, again though it is not possible to diagnose malingering without thorough medical workup. Therefore, the treatment strategy is to perform appropriate medical and neurological intervention to rule out stroke, concerns regarding the lingering must be discussed with the patient. There must be careful discussion of risks versus benefit of repeated invasive procedures and workups, especially in context of concerns for malingering. Then, physicians document this conversation including the discussion of risks versus benefits. Lastly once medical and neurological workup have been completed, next treatment strategy is to perform appropriate interventions. If acute medical abnormalities are found, they must be treated. If there is no indication for acute medical or neurological intervention and patient is deemed to be medically stable, the next intervention is behavioral modification, which includes prompt discharge from the hospital. The patient did deny any depression or anxiety today and denied any change in psychiatric medication. Notably acute psychiatric interventions are generally ineffective in cases of malingering and conversion disorder rather the treatment strategy is behavioral modification as noted above, which includes prompt discharge from the hospital once the patient has been medically stable and workup has been completed. Thank you for this consultation. Please contact us with any further questions or concerns. <ELECTRONICALLY SIGNED> By: Emma Sexton MD 12/16/17 1317 0927 19 Emma Sexton MD /nt
--- NOTE | ~2017-12-03 | HC ---
[facility] [place] [address] CONSULTATION Name: AUBREY TEAGUE Room #: 401-I [facility] IN M.R.#: [id number] Admission: 12/03/17 Attend Phys: Clayton Carlisle MD Discharge: 12/07/17 Date of : 56 Report #: [id number] THIS REPORT FOR: //name// CC: Nerissa Carlisle DATE OF SERVICE: 12/04/2017 HISTORY OF PRESENT ILLNESS: The patient is a 57-year-old white male, previously known to me, who was admitted with left-sided tingling, weakness and upper and lower extremity weakness. He notes that his symptoms are getting back to his baseline. Neurology has seen him. He had a similar presentation in July 2017 and ruled out for any type of stroke at that time. He, however, does have multiple vascular risk factors and was given TPA and his workup is being completed. In the meantime, he notes that the left-sided weakness has resolved. We are seeing him in rehabilitation medicine consultation. PAST MEDICAL HISTORY: Hypertension, tobaccoism, COPD, sleep apnea, bradycardia, GERD, depression, anxiety, migraines, hyperlipidemia and right lower lobe tumor removed 05/31/2017 for cancer. SOCIAL HISTORY: Lives in a house with friends and roommates. Premorbidly was independent without gait aids for mobility and ADLs. He does have an involved daughter. MEDICATIONS: Please see the full medication listing. HABITS: He has been a chronic tobacco user, 1 pack per day for 30 years. REVIEW OF SYSTEMS: No current complaints of chest pain, shortness of breath or abdominal discomfort. PHYSICAL EXAMINATION: GENERAL: A 57-year-old, bearded, white male in no obvious distress. VITAL SIGNS: Last recorded temperature 97.3, pulse 53, respirations 18, blood pressure 112/76. NEUROLOGIC: He is sleepy, but easily arouses. No obvious left-sided visual field neglect or facial weakness. Functional range of motion of the right upper and right lower extremity without focal weakness. Left upper extremity appears to have good strength, no obvious focal weakness. Left lower extremity appears to be good without obvious focal weakness. He was transferring with contact guard and did ambulate 15 feet contact guard when evaluated by physical therapy. ASSESSMENT: 1. A 57-year-old white male with an apparent transient ischemic attack. Left-sided numbness and weakness appear to be resolving or have resolved. [address] [address] CONSULTATION Name: AUBREY TEAGUE Room #: 401-I [facility] IN [facility].#: [id number] Admission: 12/03/17 Attend Phys: Clayton Carlisle MD Discharge: 12/07/17 Date of : 56 Report #: [id number] 2. Similar left-sided weakness episode that occurred in July 2017. 3. Hypertension. 4. Diabetes mellitus 5. Hyperlipidemia. 6. Patent foramen ovale per echocardiogram 05/02/2017. 7. Chronic obstructive pulmonary disease. 8. History of lung cancer. PLAN: Appears to be gradually returning back to his baseline. Therapies are going to continue to work with him. We would anticipate that he should be able to return directly home as he further medically stabilizes. At this point, we will continue to follow with you. <ELECTRONICALLY SIGNED> By: Geremias Bridges MD 01/01/18 1408 1119 [id number] Geremias Bridges MD /nt
--- NOTE | ~2017-12-03 | HC ---
[facility] [place] [address] CONSULTATION Name: AUBREY TEAGUE Room #: 219-P ADM IN M.R.#: [id number] Admission: 12/03/17 Attend Phys: Clayton Carlisle MD Discharge: Date of : 56 Report #: [id number] THIS REPORT FOR: //name// CC: Nerissa Carlisle DATE OF SERVICE: 12/03/2017 HISTORY OF PRESENT ILLNESS: This is a 57-year-old male patient who has multiple vascular risk factors. He presented to the Emergency Room with numbness on the left side. He also had weakness in the left upper extremity that time as per examination of the Emergency Room physician. He was evaluated by Emergency Room physician and I was called about this patient when I was in the Emergency Room. This patient apparently had presented with similar symptoms in the past, but his workup has been unremarkable. I talked to the Emergency Room physician that it is very difficult to decide the situation in this patient and he has to make a subjective call what to do depending upon the patient's wishes because I cannot be there in time. But subsequently, I did come and see this patient. In between, I reviewed all his records. This patient has been to the hospital multiple times and has been seen by multiple neurologists with the symptom on the left side, which is mainly weakness and numbness. When I came in, the patient had already just finished the TPA as I understand from the nurses and this evening, I talked to the nurses again and it looks like the patient's symptoms have resolved. REVIEW OF SYSTEMS: I tried to get from the patient, but the patient will not cooperate. He says he does not remember anything about his previous admission to this hospital. He otherwise remembers everything like what month it is and what year it is. When I asked him about the psychiatric history, he states he has some anxiety and depression but will not give me any more history in that regard. As mentioned above, he did not provide much history, but I looked at his record and talked to the Emergency Room physician and it looks like he has a history of hypertension, diabetes, hyperlipidemia and he continued to smoke. His echocardiogram has shown a patent foramen ovale. Review of systems indicates that this patient has also order received TPA in July from the records. This was the relevant 14-point review of system that I can gather. PAST MEDICAL HISTORY: Positive for similar symptoms in the past. FAMILY HISTORY: He refused to provide. SOCIAL HISTORY: He smokes, but would not tell me how much he smokes. He said he has cut back. He denies the use of alcohol. PHYSICAL EXAMINATION: NEUROLOGICAL: Indicate that he is alert. He is responsive. He can follow [facility] [address] [place] [address] CONSULTATION Name: AUBREY TEAGUE Room #: 219-P ADM IN M.R.#: [id number] Admission: 12/03/17 Attend Phys: Clayton Carlisle MD Discharge: Date of : 56 Report #: [id number] simple commands, but he is extremely uncooperative by intention. I tried to do the cranial nerve examination in this patient. He will not cooperate. I cannot tell about slight facial asymmetry, but it looks symmetrical, but it is difficult to tell. He does have weakness on the left side. He states that he does not appreciate the position sense as much on the left side as compared to the right side. His reflexes are symmetrical. There has been some discussion that this patient's deficit is organic or not. CARDIAC: Examinations appear noncontributory. PULMONARY: He does have some rhonchi. VITAL SIGNS: His blood pressure is 144/66, pulse is 72 and temperature is 98.1. LABORATORY DATA: Indicated normal white count. His PT and PTT were normal. I reviewed his record at one time. It looks like he may have had some protein-S deficiency. IMPRESSION: This patient has presented with recurrent episodes of stroke-like symptoms. His extensive workup has been unremarkable. Today, he presented with similar symptoms and I was not in the hospital and I discussed with the Emergency Room physicians that I will not be able to assess him in time and he needs to make a subjective decision and because of all the vascular risk factor he has and hemiplegia after talking to him, he did give this patient tissue plasminogen activator. This patient keeps having these episodes and these episodes. Because of that, alternate diagnosis including psychological diagnoses need to be considered in this patient. This patient is a very difficult management problem. He has all the vascular risk factors. If he comes to the Emergency Room with symptoms suggestive of stroke, he needs to be treated as a stroke and will be given tissue plasminogen activator as it was rightly done by Emergency Room physician this time. The problem is that if he continues with this behavior and if it is a psychiatric behavior, he may run into trouble one time. This makes the situation extremely difficult for Emergency Room physician and for the neurologist if a neurologist is seeing him at that time or coordinating the care with the Emergency Room physician. Presently, he is doing but some long-term plan needs to be made for this patient. Although, patent foramen ovale is a risk factor for stroke, but there is also a risk factor for migraine and hemiplegic migraine can occur but apparently, this patient's deficit also has been inconsistent on times. RECOMMENDATIONS: 1. Presently, this patient has received TPA and we should follow the TPA protocol. 2. As mentioned above, the management is extremely difficult in this patient because he has multiple vascular risk factors and he can have stroke anytime and he need to be treated as a stroke when he presented with a like symptom as he was appropriately done in my view this time by Emergency Room physician. But for the fci, I will suggest a psychiatric consult in this patient and do some further evaluation and management in this patient and hopefully, he will be [facility] [address] [place] [address] CONSULTATION Name: AUBREY TEAGUE Room #: 219-P ADM IN ..#: [id number] Admission: 12/03/17 Attend Phys: Clayton Carlisle MD Discharge: Date of : 56 Report #: [id number] in a better mood to talk and we will be able to talk, but his behavior appeared to be clearly manipulative where he has good memory for everything but states that he does not remember anything about the prior admission and he has done at this time as well as last time. Thank you very much for this referral and if you have any question, please feel free to contact me. <ELECTRONICALLY SIGNED> By: Bob Dickinson MD 12/04/172000 184 014 Bob Dickinson MD /nt
[~2017-12-03 07:29] MED LIST changes: +CELEXA20 MG PO; +FLOMAX0.4 MG PO; +KLONOPIN1 MG PO
[2017-12-03 08:05] LABS: ABSOLUTE NEUTROPHILS 4.8 thou/uL (1.4-8.2); EOSINOPHILS 2.2 % (0.0-3.0); HEMOGLOBIN 16.7 gm/dL (14.0-18.0); LYMPHOCYTES 21.1 % (24.0-44.0); MCHC 34.2 g/dL (28.0-37.0); MCV 96.7 fL (80.0-100.0); MONOCYTES 11.5 % (1.0-8.0); POLYS 64.2 % (36.0-66.0); RBC 5.07 mil/uL (4.50-6.00); RDW 14.5 % (10.5-14.5); WBC 7.4 thou/uL (4.0-11.0)
[2017-12-03 08:08] LABS: PLATELET COUNT 189 thou/uL (150-400)
[2017-12-03 08:12] LABS: ANION GAP 8 mmol/L (7-16); BUN 23 mg/dL (7-18); CALCIUM 9.8 mg/dL (8.5-10.1); CHLORIDE 109 mmol/L (98-107); CO2 27 mmol/L (21-32); CREATININE 0.9 mg/dL (0.7-1.3); POTASSIUM 4.2 mmol/L (3.5-5.1); SODIUM 144 mmol/L (136-145)
[2017-12-03 08:13] LABS: GLUCOSE 121 mg/dL (74-106)
[2017-12-03 08:21] LABS: ALBUMIN 4.1 g/dL (3.4-5.0); SGOT 13 U/L (15-37); SGPT 20 U/L (30-65); TOTAL BILIRUBIN 0.5 mg/dL (<0.1-1.0); TOTAL PROTEIN 7.3 g/dL (6.4-8.2); TROPONIN-I < 0.04 ng/mL (<0.06)
[2017-12-03 08:47] LABS: APTT 23.2 Seconds (24.5-32.8); PROTIME 9.9 Seconds (9.3-11.4)
[2017-12-03] MEDS ORDERED: ASPIR 8181 MG PO (09:02)
[2017-12-03 20:09] LABS: GLYCOHEMOGLOBIN (HGB A1C) 5.6 % (4.8-5.6)
[2017-12-04] VITALS (21 sets, daily range): BP systolic 99–140; BP diastolic 64–107
[2017-12-04 05:02] LABS: ANION GAP 7 mmol/L (7-16); BUN 24 mg/dL (7-18); CALCIUM 8.7 mg/dL (8.5-10.1); CHLORIDE 106 mmol/L (98-107); CHOLESTEROL 156 mg/dL (<200); CO2 26 mmol/L (21-32); CREATININE 0.7 mg/dL (0.7-1.3); GLUCOSE 119 mg/dL (74-106); HDL CHOLESTEROL 58 mg/dL (>40); LDL CHOLESTEROL 83 mg/dL (<100); MAGNESIUM 2.2 mg/dL (1.8-2.4); POTASSIUM 3.9 mmol/L (3.5-5.1); SODIUM 139 mmol/L (136-145); TC:HDL 2.7 Ratio (Not establshd); TRIGLYCERIDE 79 mg/dL (<150); VLDL 16 mg/dL (<40)
[2017-12-05 00:45] VITALS: BP 118/65
[2017-12-05 04:30] VITALS: BP 113/77
[2017-12-05 04:32] LABS: HEMATOCRIT 43.7 % (42.0-52.0); HEMOGLOBIN 14.9 gm/dL (14.0-18.0); MCH 33.2 pg (26.0-34.0); MCHC 34.2 g/dL (28.0-37.0); MCV 97.1 fL (80.0-100.0); RBC 4.5 mil/uL (4.50-6.00); RDW 14.7 % (10.5-14.5)
[2017-12-05 04:39] LABS: CALCIUM 9.1 mg/dL (8.5-10.1); CREATININE 0.8 mg/dL (0.7-1.3); POTASSIUM 4.1 mmol/L (3.5-5.1)
[2017-12-05 07:35] VITALS: BP 124/83
[2017-12-05 12:00] VITALS: BP 123/78
[2017-12-05 16:15] VITALS: BP 116/77
[2017-12-05 19:45] VITALS: BP 116/74
[2017-12-06 04:30] VITALS: BP 124/81
[2017-12-06 11:05] VITALS: BP 121/81
[2017-12-06 14:58] VITALS: BP 117/67
[2017-12-06 20:00] VITALS: BP 126/71
[2017-12-07 04:00] VITALS: BP 114/66
[2017-12-07 08:00] VITALS: BP 112/76
[2017-12-07 11:13] VITALS: BP 112/76
== END 2017-12-07 13:25 | disposition home or self-care (01) | DRG 62 ==
LOC: ER 07:29 → EROBS 09:40 → ICU 09:40 → 2N 12-04 17:29 → 4N 12-06 13:38 → ENTRNSPT 12-07 13:17 → EDTRNSPTSTS 12-07 13:19 → 4N 12-07 13:25
PROVIDERS: Emergency Medicine; Hospitalist; Nurse Practitioner
DX: G45.9 Transient cerebral ischemic attack, unspecified (principal); F33.9 Major depressive disorder, recurrent, unspecified; Z76.5 Malingerer [conscious simulation]; F41.9 Anxiety disorder, unspecified; E11.9 Type 2 diabetes mellitus without complications; I10 Essential (primary) hypertension; E78.5 Hyperlipidemia, unspecified; J44.9 Chronic obstructive pulmonary disease, unspecified; K21.9 Gastro-esophageal reflux disease without esophagitis; G43.909 Migraine, unspecified, not intractable, without status migrainosus; Z88.8 Allergy status to other drugs, medicaments and biological substances; Z85.118 Personal history of other malignant neoplasm of bronchus and lung; Z83.3 Family history of diabetes mellitus; Z82.49 Family history of ischemic heart disease and other diseases of the circulatory system; Z83.6 Family history of other diseases of the respiratory system; Z87.891 Personal history of nicotine dependence; Z79.899 Other long term (current) drug therapy
CPT/HCPCS: 10078; 10790; 10797

== ENCOUNTER 2017-12-18 20:04 | Emergency (ER) | payer OTHER ==
[~2017-12-18] VITALS: Ht 172.7 cm; Wt 75.8 kg
--- NOTE | ~2017-12-18 | EKG ---
[place] [address] [facility] [place] [address] ELECTROCARDIOGRAM REPORT Name: AUBREY TEAGUE Room #: DEP Rolando#: [id number] Admission: 12/18/17 Attend Phys: Discharge: 12/18/17 Date of : 56 Report #: [id number] THIS REPORT FOR: //name// [facility] ED Test Date: 2017-12-18 Test Time: 21:05:07 Pat Name: AUBREY TEAGUE Department: Room: Gender: M Msws: TARA : 1960 Requested By: Shanika Vance Order Number: [id number] MD: bAimael Montano Measurements Intervals [place] Rate: 79 P: 22 [place]: 186 QRS: -30 QRSD: 88 T: 16 QT: 378 QTc: 434 Interpretive Statements Sinus rhythm Inferior infarct, old Compared to ECG 12/03/2017 07:36:02 No significant change was found Electronically Signed On 12-19-2017 14:38:13 PLASTIC PARTS FABRICATOR by Abimael Montano [email or web address] <ELECTRONICALLY SIGNED> By: Abimael Montano MD, [facility] 12/19/17 1438 2105 04 Abimael Montano MD, FACC /EPI
[2017-12-18 21:45] VITALS: BP 138/74
== END 2017-12-18 21:40 | disposition home or self-care (01) ==
LOC: ER 20:04
DX: J44.9 Chronic obstructive pulmonary disease, unspecified (principal); Z76.5 Malingerer [conscious simulation]; K21.9 Gastro-esophageal reflux disease without esophagitis; G43.909 Migraine, unspecified, not intractable, without status migrainosus; G47.30 Sleep apnea, unspecified; F17.210 Nicotine dependence, cigarettes, uncomplicated; Z88.8 Allergy status to other drugs, medicaments and biological substances

== ENCOUNTER 2018-04-25 07:21 | Emergency (ER) | payer OTHER ==
[~2018-04-25] VITALS: Ht 170.2 cm; Wt 63.5 kg
--- NOTE | ~2018-04-25 | EKG ---
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: TSTOR : 1960 Requested By: Christine Robin Order Number: [id number] MD: Vicente Beth Measurements Intervals [place] Rate: 71 P: -6 [place]: 186 QRS: -31 QRSD: 88 T: 18 QT: 401 QTc: 436 Interpretive Statements Sinus rhythm Possible Inferior infarct, old Nonspecific ST segment abnormalities Compared to ECG 12/18/2017 21:05:07 ST (T wave) deviation now present Myocardial infarct finding still present Electronically Signed On 04-25-2018 13:01:02 CDT by Vicente Beth [email or web address] <ELECTRONICALLY SIGNED> By: Vicente Beth MD 04/25/18 1301 Vicente Beth MD /SHIRLEY
[2018-04-25 07:45] LABS: ABSOLUTE NEUTROPHILS 7.1 thou/uL (1.4-8.2); EOSINOPHILS 3.1 % (0.0-3.0); HEMATOCRIT 48.7 % (42.0-52.0); HEMOGLOBIN 16.7 gm/dL (14.0-18.0); LYMPHOCYTES 23.4 % (24.0-44.0); MCH 33.5 pg (26.0-34.0); MCHC 34.4 g/dL (28.0-37.0); MCV 97.2 fL (80.0-100.0); MONOCYTES 11.8 % (1.0-8.0); POLYS 60.7 % (36.0-66.0); RBC 5.01 mil/uL (4.50-6.00); RDW 14.5 % (10.5-14.5); WBC 13.3 thou/uL (4.0-11.0)
[2018-04-25 07:58] LABS: ANION GAP 8 mmol/L (7-16); BUN 19 mg/dL (7-18); CALCIUM 9.7 mg/dL (8.5-10.1); CHLORIDE 106 mmol/L (98-107); CO2 26 mmol/L (21-32); CREATININE 0.8 mg/dL (0.7-1.3); GLUCOSE 124 mg/dL (74-106); POTASSIUM 4.5 mmol/L (3.5-5.1); SODIUM 140 mmol/L (136-145)
[2018-04-25 08:06] LABS: TROPONIN-I < 0.04 ng/mL (<0.06)
[2018-04-25 08:09] LABS: PLATELET COUNT 162 thou/uL (150-400)
[2018-04-25] MEDS ORDERED: PREDNISONE50 MG PO (08:13)
[2018-04-25] MEDS ORDERED: ZPAK PO (08:13)
[2018-04-25 08:42] VITALS: BP 133/80
== END 2018-04-25 08:35 | disposition home or self-care (01) ==
LOC: ER 07:21
PROVIDERS: Emergency Medicine
DX: J44.1 Chronic obstructive pulmonary disease with (acute) exacerbation (principal); F17.210 Nicotine dependence, cigarettes, uncomplicated; E78.00 Pure hypercholesterolemia, unspecified; F41.9 Anxiety disorder, unspecified; F32.9 Major depressive disorder, single episode, unspecified; K21.9 Gastro-esophageal reflux disease without esophagitis; G43.909 Migraine, unspecified, not intractable, without status migrainosus; Z88.1 Allergy status to other antibiotic agents; Z85.118 Personal history of other malignant neoplasm of bronchus and lung; Z90.89 Acquired absence of other organs

== ENCOUNTER 2018-06-22 12:35 | Emergency (ER) | payer OTHER ==
[~2018-06-22] VITALS: Ht 175.3 cm; Wt 74.8 kg
[2018-06-22] MEDS ORDERED: METFORMIN HCL500 MG PO (12:57)
[2018-06-22] MEDS ORDERED: IBUPROFEN 800800 M1 PO (12:58)
[2018-06-22] MEDS ORDERED: NEURONTIN 300300 M1 PO (12:59)
[2018-06-22] MEDS ORDERED: VENTOLIN HFA 1818 GM INH (13:00)
[2018-06-22 14:01] VITALS: BP 132/71
== END 2018-06-22 14:07 | disposition home or self-care (01) ==
LOC: ER 12:35
DX: G43.909 Migraine, unspecified, not intractable, without status migrainosus (principal); F17.210 Nicotine dependence, cigarettes, uncomplicated; Z88.8 Allergy status to other drugs, medicaments and biological substances; J44.9 Chronic obstructive pulmonary disease, unspecified; E78.00 Pure hypercholesterolemia, unspecified; F41.9 Anxiety disorder, unspecified; F32.9 Major depressive disorder, single episode, unspecified; I10 Essential (primary) hypertension; G47.30 Sleep apnea, unspecified; K21.9 Gastro-esophageal reflux disease without esophagitis; Z86.73 Personal history of transient ischemic attack (TIA), and cerebral infarction without residual deficits; Z85.118 Personal history of other malignant neoplasm of bronchus and lung; Z90.2 Acquired absence of lung [part of]

== ENCOUNTER 2018-08-24 12:21 | Emergency (ER) | payer OTHER ==
[~2018-08-24] VITALS: Ht 175.3 cm; Wt 76.2 kg
--- NOTE | ~2018-08-24 | EKG ---
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: MAURILIOALONSO : 1960 Requested By: Gigi Leung Order Number: [id number] MD: Enoch Hall Measurements Intervals [place] Rate: 77 P: 24 [place]: 186 QRS: -34 QRSD: 87 T: 24 QT: 372 QTc: 421 Interpretive Statements Sinus rhythm Inferior infarct, old Borderline ST elevation, anterior leads Compared to ECG 04/25/2018 07:42:51 ST (T wave) deviation now present Myocardial infarct finding still present Electronically Signed On 08-24-2018 17:42:03 CDT by Enoch Hall [email or web address] <ELECTRONICALLY SIGNED> By: Enoch Hall MD 08/24/18 1742 1225 1225 Enoch Hall MD /EPI
[~2018-08-24 12:21] MED LIST changes: +METFORMIN HCL500 MG PO; +NEURONTIN 300300 M1 PO
[2018-08-24 12:50] LABS: ABSOLUTE NEUTROPHILS 4.6 thou/uL (1.4-8.2); BASOPHILS 0.7 % (0.0-2.0); EOSINOPHILS 2.6 % (0.0-3.0); HEMATOCRIT 48.3 % (42.0-52.0); HEMOGLOBIN 16.7 gm/dL (14.0-18.0); LYMPHOCYTES 25.1 % (24.0-44.0); MCH 33.7 pg (26.0-34.0); MCHC 34.6 g/dL (28.0-37.0); MCV 97.4 fL (80.0-100.0); MONOCYTES 11.1 % (1.0-8.0); PLATELET COUNT 158 thou/uL (150-400); POLYS 60.5 % (36.0-66.0); RBC 4.96 mil/uL (4.50-6.00); RDW 13.5 % (10.5-14.5); WBC 7.5 thou/uL (4.0-11.0)
[2018-08-24 12:54] LABS: CALCIUM 9.6 mg/dL (8.5-10.1); CREATININE 0.8 mg/dL (0.7-1.3); POTASSIUM 3.5 mmol/L (3.5-5.1)
[2018-08-24 13:00] LABS: ALBUMIN 3.8 g/dL (3.4-5.0); TOTAL BILIRUBIN 0.5 mg/dL (<0.1-1.0); TOTAL PROTEIN 7.2 g/dL (6.4-8.2)
[2018-08-24 13:05] LABS: APTT 25.8 Seconds (24.5-32.8); PROTIME 10.1 Seconds (9.3-11.4)
[2018-08-24] MEDS ORDERED: ANUSOL-HC25 MG RECTAL (14:35)
[2018-08-24] MEDS ORDERED: PREDNISONE 20 M20 MG PO (14:35)
[2018-08-24] MEDS ORDERED: PRILOSEC 20 MG20 MG PO (14:35)
[2018-08-24 14:49] VITALS: BP 113/84
== END 2018-08-24 14:53 | disposition home or self-care (01) ==
LOC: ER 12:21
PROVIDERS: Emergency Medicine
DX: K62.5 Hemorrhage of anus and rectum (principal); J44.1 Chronic obstructive pulmonary disease with (acute) exacerbation; R10.9 Unspecified abdominal pain; F17.210 Nicotine dependence, cigarettes, uncomplicated; E78.00 Pure hypercholesterolemia, unspecified; F41.9 Anxiety disorder, unspecified; F32.9 Major depressive disorder, single episode, unspecified; I10 Essential (primary) hypertension; G47.30 Sleep apnea, unspecified; K21.9 Gastro-esophageal reflux disease without esophagitis; G43.909 Migraine, unspecified, not intractable, without status migrainosus; Z86.73 Personal history of transient ischemic attack (TIA), and cerebral infarction without residual deficits; Z85.118 Personal history of other malignant neoplasm of bronchus and lung; Z90.2 Acquired absence of lung [part of]; Z88.8 Allergy status to other drugs, medicaments and biological substances

== ENCOUNTER 2018-08-30 13:37 | Emergency (ER) | payer OTHER ==
[~2018-08-30] VITALS: Ht 175.3 cm; Wt 76.7 kg
--- NOTE | ~2018-08-30 | EKG ---
[address] [address] ELECTROCARDIOGRAM REPORT Name: AUBREY TEAGUE [facility] [id number] Admission: 08/30/18 Attend Phys: Discharge: 08/30/18 Date of : 56 Report #: [id number] THIS REPORT FOR: //name// [facility] ED Test Date: 2018-08-30 Test Time: 13:44:21 Pat Name: AUBREY TEAGUE Department: Room: 170 Gender: M Form Builder: MUNA : 1960 Requested By: Gigi Leung Order Number: [id number] MD: Enoch Hall Measurements Intervals [place] Rate: 91 P: 38 [place]: 174 QRS: -15 QRSD: 95 T: 15 QT: 353 QTc: 435 Interpretive Statements Sinus rhythm Borderline left axis deviation Anteroseptal infarct, old Compared to ECG 08/24/2018 12:25:10 ST (T wave) deviation no longer present Myocardial infarct finding still present Electronically Signed On 08-31-2018 17:07:09 CDT by Enoch Hall [email or web address] <ELECTRONICALLY SIGNED> By: Enoch Hall MD 08/31/18 1707 1344 1344 Enoch Hall MD /EPI
[~2018-08-30 13:37] MED LIST changes: +ANUSOL-HC25 MG RECTAL; +PRILOSEC 20 MG20 MG PO
[2018-08-30 13:38] VITALS: BP 148/85
[2018-08-30 14:25] LABS: ABSOLUTE NEUTROPHILS 5.1 thou/uL (1.4-8.2); BASOPHILS 0.9 % (0.0-2.0); EOSINOPHILS 4.2 % (0.0-3.0); HEMOGLOBIN 16.8 gm/dL (14.0-18.0); LYMPHOCYTES 20.1 % (24.0-44.0); MCH 34.3 pg (26.0-34.0); MCHC 34.9 g/dL (28.0-37.0); MCV 98.3 fL (80.0-100.0); PLATELET COUNT 155 thou/uL (150-400); POLYS 65.8 % (36.0-66.0); RBC 4.89 mil/uL (4.50-6.00); WBC 7.7 thou/uL (4.0-11.0)
[2018-08-30 14:34] LABS: ANION GAP 9 mmol/L (7-16); BUN 30 mg/dL (7-18); CALCIUM 9.2 mg/dL (8.5-10.1); CHLORIDE 105 mmol/L (98-107); CO2 24 mmol/L (21-32); CREATININE 0.8 mg/dL (0.7-1.3); GLUCOSE 181 mg/dL (74-106); POTASSIUM 3.6 mmol/L (3.5-5.1); SODIUM 138 mmol/L (136-145)
[2018-08-30 14:40] LABS: APTT 25.2 Seconds (24.5-32.8); PROTIME 9.5 Seconds (9.3-11.4)
[2018-08-30 14:43] LABS: ALBUMIN 3.3 g/dL (3.4-5.0); MAGNESIUM 2.2 mg/dL (1.8-2.4); SGOT 16 U/L (15-37); SGPT 19 U/L (30-65); TOTAL BILIRUBIN 0.3 mg/dL (<0.1-1.0); TOTAL PROTEIN 6.7 g/dL (6.4-8.2); TROPONIN-I <0.06 ng/mL (<0.06)
[2018-08-30 16:13] LABS: AMP/METHAMP Negative (Negative); BARBITURATES Negative (Negative); BENZODIAZEPINES Negative (Negative); COCAINE Negative (Negative); METHADONE Negative (Negative); OPIATES Negative (Negative); PCP Negative (Negative)
[2018-08-30 17:26] VITALS: BP 144/102
== END 2018-08-30 17:28 | disposition left against medical advice (07) ==
LOC: ER 13:37 → EROBS 16:49
PROVIDERS: Emergency Medicine
DX: G45.9 Transient cerebral ischemic attack, unspecified (principal); J44.9 Chronic obstructive pulmonary disease, unspecified; E78.00 Pure hypercholesterolemia, unspecified; I10 Essential (primary) hypertension; K21.9 Gastro-esophageal reflux disease without esophagitis; G43.909 Migraine, unspecified, not intractable, without status migrainosus; G47.30 Sleep apnea, unspecified; F17.210 Nicotine dependence, cigarettes, uncomplicated; Z87.19 Personal history of other diseases of the digestive system; Z88.8 Allergy status to other drugs, medicaments and biological substances; Z85.118 Personal history of other malignant neoplasm of bronchus and lung

== ENCOUNTER 2018-12-06 20:11 | Emergency (ER) | payer OTHER ==
[~2018-12-06] VITALS: Ht 175.3 cm; Wt 77.1 kg
[2018-12-06 20:35] LABS: HEMATOCRIT 46.4 % (42.0-52.0); HEMOGLOBIN 16.4 gm/dL (14.0-18.0); MCH 33.8 pg (26.0-34.0); MCHC 35.4 g/dL (28.0-37.0); MCV 95.5 fL (80.0-100.0); RBC 4.86 mil/uL (4.50-6.00); RDW 13.5 % (10.5-14.5); WBC 8.1 thou/uL (4.0-11.0)
[2018-12-06 20:40] LABS: ANION GAP 7 mmol/L (7-16); BUN 23 mg/dL (7-18); CHLORIDE 105 mmol/L (98-107); CO2 29 mmol/L (21-32); CREATININE 1.1 mg/dL (0.7-1.3); GLUCOSE 101 mg/dL (74-106); POTASSIUM 4.2 mmol/L (3.5-5.1); SODIUM 141 mmol/L (136-145)
[2018-12-06 20:49] LABS: TROPONIN-I <0.06 ng/mL (<0.06)
[2018-12-06 20:51] VITALS: BP 136/98
--- NOTE | 2018-12-07 08:37 | EKG ---
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: TARA : 1960 Requested By: Soham Colón Order Number: [id number] MD: Abimael Montano Measurements Intervals [place] Rate: 74 P: 37 MD: 182 QRS: -32 QRSD: 88 T: 10 QT: 368 QTc: 409 Interpretive Statements Sinus rhythm Inferior infarct, old Anteroseptal infarct, old Compared to ECG 08/30/2018 13:44:21 No significant change was found Electronically Signed On 12-07-2018 8:37:39 SCHOOL PHYSICAL THERAPIST by Abimael Montano [email or web address] <ELECTRONICALLY SIGNED> By: Abimael Montano MD, [facility] 12/07/18 0837 43 43 Abimael Montano MD, FAC /EPI
== END 2018-12-06 20:50 | disposition left against medical advice (07) ==
LOC: ER 20:11
PROVIDERS: Emergency Medicine
DX: R06.02 Shortness of breath (principal); R05 Cough; J44.9 Chronic obstructive pulmonary disease, unspecified; E78.00 Pure hypercholesterolemia, unspecified; F41.9 Anxiety disorder, unspecified; F32.9 Major depressive disorder, single episode, unspecified; I10 Essential (primary) hypertension; K21.9 Gastro-esophageal reflux disease without esophagitis; G43.909 Migraine, unspecified, not intractable, without status migrainosus; Z85.118 Personal history of other malignant neoplasm of bronchus and lung; F17.210 Nicotine dependence, cigarettes, uncomplicated; Z88.8 Allergy status to other drugs, medicaments and biological substances

== ENCOUNTER 2019-02-03 12:04 | Inpatient (IN) | payer OTHER ==
[~2019-02-03] VITALS: Ht 175.3 cm; Wt 80.7 kg
[2019-02-03 12:05] VITALS: BP 159/96
[2019-02-03] MEDS ORDERED: BENAZEPRIL HCL20 MG PO (12:10)
[2019-02-03] MEDS ORDERED: VENTOLIN HFA 1818 GM INH ×2 (12:11→15:25)
[2019-02-03 12:22] LABS: ABSOLUTE NEUTROPHILS 6.9 thou/uL (1.4-8.2); BASOPHILS 0.5 % (0.0-2.0); EOSINOPHILS 0.7 % (0.0-3.0); HEMATOCRIT 51.9 % (42.0-52.0); HEMOGLOBIN 18.5 gm/dL (14.0-18.0); LYMPHOCYTES 15.2 % (24.0-44.0); MCH 33.7 pg (26.0-34.0); MCHC 35.6 g/dL (28.0-37.0); MCV 94.6 fL (80.0-100.0); MONOCYTES 7.4 % (1.0-8.0); PLATELET COUNT 161 thou/uL (150-400); POLYS 76.2 % (36.0-66.0); RBC 5.48 mil/uL (4.50-6.00); RDW 14.4 % (10.5-14.5)
[2019-02-03 12:30] LABS: ANION GAP 12 mmol/L (7-16); BUN 14 mg/dL (7-18); CALCIUM 9.8 mg/dL (8.5-10.1); CHLORIDE 100 mmol/L (98-107); CO2 24 mmol/L (21-32); CREATININE 0.8 mg/dL (0.7-1.3); GLUCOSE 143 mg/dL (74-106); POTASSIUM 3.5 mmol/L (3.5-5.1); SODIUM 136 mmol/L (136-145)
[2019-02-03 12:39] LABS: ALBUMIN 4.3 g/dL (3.4-5.0); SGOT 15 U/L (15-37); SGPT 14 U/L (30-65); TOTAL PROTEIN 8.1 g/dL (6.4-8.2); TROPONIN-I <0.06 ng/mL (<0.06)
[2019-02-03 12:43] LABS: ANISOCYTOSIS 1+; PLATELET ESTIMATE NORMAL
[2019-02-03 15:00] VITALS: BP 124/77
[2019-02-03 15:08] VITALS: BP 126/75
[2019-02-03] MEDS ORDERED: METFORMIN HCL500 M2 PO (15:28)
[2019-02-03] MEDS ORDERED: CLONAZEPAM 0.50.5 M1 PO (15:35)
--- NOTE | 2019-02-03 18:06 | EKG ---
[address] [place] [address] ELECTROCARDIOGRAM REPORT Name: AUBREY TEAGUE Room #: 170-18 ADM IN M.R.#: [id number] ������������������ Admission: 02/03/19 ������������������ Attend Phys: Rupert Rothman MD Discharge: ������������������ Date of : 56 Report #: [id number] ����������������������������������������������������������������� [id number] THIS REPORT FOR: //name// [facility] ED Test Date: 2019-02-03 Test Time: 12:11:32 Pat Name: AUBREY TEAGUE Department: Room: 170 Gender: M Anesthesiology Physician Assistant: RAULITO : 1960 Requested By: Shanika Vance Order Number: [id number] MD: Abimael Montano Measurements Intervals [place] Rate: 95 P: 22 [place]: 176 QRS: -22 QRSD: 93 T: 3 QT: 352 QTc: 443 Interpretive Statements Sinus rhythm Inferior infarct, age indeterminate Compared to ECG 12/06/2018 20:44:44 No significant change was found Electronically Signed On 02-03-2019 18:06:23 CDT by Abimael Montano [email or web address] ��������������������������������������������� <ELECTRONICALLY SIGNED> ���������������������������������������� By: Abimael Montano MD, [facility] ��������������������������������������������� 02/03/19 1806 1211 121 Abimael Montano MD, FAC /EPI
[2019-02-03 19:40] VITALS: BP 122/65
[2019-02-03 20:15] VITALS: BP 125/80
[2019-02-04 00:15] VITALS: BP 141/79
[2019-02-04 04:26] LABS: CALCIUM 9.8 mg/dL (8.5-10.1); CREATININE 1.1 mg/dL (0.7-1.3); MAGNESIUM 2.3 mg/dL (1.8-2.4); POTASSIUM 3.9 mmol/L (3.5-5.1)
[2019-02-04 04:41] LABS: BASOPHILS 0.1 % (0.0-2.0); HEMATOCRIT 47.2 % (42.0-52.0); LYMPHOCYTES 6.5 % (24.0-44.0); MCH 32.9 pg (26.0-34.0); MCHC 34.4 g/dL (28.0-37.0); MCV 95.6 fL (80.0-100.0); PLATELET COUNT 150 thou/uL (150-400); POLYS 90.4 % (36.0-66.0); RBC 4.93 mil/uL (4.50-6.00); RDW 14.3 % (10.5-14.5); WBC 12.2 thou/uL (4.0-11.0)
[2019-02-04 04:45] VITALS: BP 116/67
[2019-02-04 05:16] LABS: HEMOGLOBIN 16.2 gm/dL (14.0-18.0)
--- NOTE | 2019-02-04 05:26 | NUR ---
PT WAS A NEW ADMIT FROM ER LAST NIGHT. VSS. PT A&0X4, WAS IRRITABLE AND WAS DISPLEASED THAT HE HAD TO BE ON TELE MONITORING. ADMISSION ASSESSMENTS DONE, TELE STRIP FILLED, MEDS GIVEN ARE DOCUMENTED. PT SLEPT WELL FOR MOST OF THE NIGHT, NO COMPLAINTS WITH BREATHING, HIS 02 SAT WAS STABLE ALL NIGHT, PT APPEARS TO BE IN NO APPARENT DISTRESS, WILL CONTINUE TO MONITOR PER POC
[2019-02-04] MEDS ORDERED: PREDNISONE 20 M20 M1 PO (12:10)
[2019-02-04] MEDS ORDERED: AZITHROMYCIN 2250 MG PO (12:10)
[2019-02-04] MEDS ORDERED: PROTONIX40 M1 PO (12:10)
[2019-02-04 14:15] VITALS: BP 129/73
--- NOTE | 2019-02-04 14:28 | NUR ---
ASSUMED CARE THIS AM, SHIFT ASSESSMENT DONE, MEDS GIVEN, VSS. DENIES ANY APIN, NAUSEA, VOMITING. DENIED TO WORK WITH PHYSICAL THERAPHY. DENIED VITAL SIGNS THIS AM. DISCHARGE ORDERS RECEIVED. WILL CONTINUE TO ASSESS AND ASSIST WITH ADLs NEEDED.
[2019-02-04 14:30] VITALS: BP 127/76
[2019-02-04 15:22] VITALS: BP 127/76
--- NOTE | 2019-02-04 16:00 | NUR ---
DISCHARGE ORDERS RECEIVED, PAPER WORK GIVEN. PERIPHERAL IV WAS TAKEN OUT. TELEMETRY DISCHARGED. PATEINT WALKED OUT OF THE ROOM AND DENIED VOLUNTEER TRANSPORT.
== END 2019-02-04 15:56 | disposition home or self-care (01) | DRG 189 ==
LOC: ER 12:04 → EROBS 14:35 → 2N 14:35
PROVIDERS: Nurse Practitioner; Nurse Practitioner Family; ADMIT Internal Medicine
DX: J96.20 Acute and chronic respiratory failure, unspecified whether with hypoxia or hypercapnia (principal); J44.1 Chronic obstructive pulmonary disease with (acute) exacerbation; J98.11 Atelectasis; Q21.1 Atrial septal defect; F41.9 Anxiety disorder, unspecified; F32.9 Major depressive disorder, single episode, unspecified; I10 Essential (primary) hypertension; K21.9 Gastro-esophageal reflux disease without esophagitis; G43.909 Migraine, unspecified, not intractable, without status migrainosus; F17.210 Nicotine dependence, cigarettes, uncomplicated; E11.9 Type 2 diabetes mellitus without complications; E78.5 Hyperlipidemia, unspecified; Z83.3 Family history of diabetes mellitus; Z82.49 Family history of ischemic heart disease and other diseases of the circulatory system; Z85.118 Personal history of other malignant neoplasm of bronchus and lung; Z88.8 Allergy status to other drugs, medicaments and biological substances; Z80.1 Family history of malignant neoplasm of trachea, bronchus and lung
CPT/HCPCS: 10081

== ENCOUNTER 2019-06-10 09:41 | Emergency (ER) | payer OTHER ==
[~2019-06-10] VITALS: Ht 175.3 cm; Wt 79.4 kg
[~2019-06-10 09:41] MED LIST changes: +AZITHROMYCIN 2250 MG PO; +BENAZEPRIL HCL20 MG PO; +METFORMIN HCL500 M2 PO; +PROTONIX40 M1 PO
[2019-06-10 10:05] LABS: BASOPHILS 0.8 % (0.0-2.0); EOSINOPHILS 1.4 % (0.0-3.0); HEMATOCRIT 50.4 % (42.0-52.0); HEMOGLOBIN 17.7 gm/dL (14.0-18.0); LYMPHOCYTES 18.4 % (24.0-44.0); MCH 34.1 pg (26.0-34.0); MCHC 35.2 g/dL (28.0-37.0); MCV 96.9 fL (80.0-100.0); MONOCYTES 8.3 % (1.0-8.0); PLATELET COUNT 155 thou/uL (150-400); POLYS 71.1 % (36.0-66.0); RDW 14.2 % (10.5-14.5); WBC 8.4 thou/uL (4.0-11.0)
[2019-06-10 10:10] LABS: CALCIUM 10.3 mg/dL (8.5-10.1); CREATININE 0.8 mg/dL (0.7-1.3); POTASSIUM 3.6 mmol/L (3.5-5.1)
[2019-06-10 10:11] LABS: URINE BILIRUBIN NEGATIVE (Negative); URINE BLOOD TRACE (Negative); URINE CLARITY CLEAR; URINE COLOR YELLOW; URINE GLUCOSE-RANDOM* NEGATIVE (Negative); URINE KETONES NEGATIVE (Negative); URINE LEUKOCYTES-REFLEX NEGATIVE (Negative); URINE NITRITE-REFLEX NEGATIVE (Negative); URINE PROTEIN (DIPSTICK) TRACE (Negative); URINE SPECIFIC GRAVITY 1.015 (1.005-1.035); URINE UROBILINOGEN 0.2 E.U./dl (0.2-1.0)
[2019-06-10 10:16] LABS: ALBUMIN 4.1 g/dL (3.4-5.0); TOTAL BILIRUBIN 0.9 mg/dL (<0.1-1.0); TOTAL PROTEIN 7.5 g/dL (6.4-8.2)
[2019-06-10] MEDS ORDERED: ADVAIR HFA 230M12 GM INH (10:34)
[2019-06-10] MEDS ORDERED: FLEXERIL PO (10:34)
[2019-06-10] MEDS ORDERED: LEVSIN0.125 MG PO (11:02)
[2019-06-10] MEDS ORDERED: ONDANSETRON HCL4 M2 PO (11:02)
[2019-06-10 12:07] VITALS: BP 138/81
== END 2019-06-10 12:08 | disposition home or self-care (01) ==
LOC: ER 09:41
PROVIDERS: Physician Assistant
DX: A08.4 Viral intestinal infection, unspecified (principal); R10.31 Right lower quadrant pain; E11.9 Type 2 diabetes mellitus without complications; R11.2 Nausea with vomiting, unspecified; F17.210 Nicotine dependence, cigarettes, uncomplicated; J44.9 Chronic obstructive pulmonary disease, unspecified; E78.00 Pure hypercholesterolemia, unspecified; G43.909 Migraine, unspecified, not intractable, without status migrainosus; I10 Essential (primary) hypertension; K21.9 Gastro-esophageal reflux disease without esophagitis; Z86.73 Personal history of transient ischemic attack (TIA), and cerebral infarction without residual deficits; Z88.8 Allergy status to other drugs, medicaments and biological substances; Z79.899 Other long term (current) drug therapy; Z85.118 Personal history of other malignant neoplasm of bronchus and lung; Z79.82 Long term (current) use of aspirin

== ENCOUNTER 2019-06-21 18:11 | Emergency (ER) | payer OTHER ==
[~2019-06-21] VITALS: Ht 175.3 cm; Wt 79.4 kg
[~2019-06-21 18:11] MED LIST changes: +LEVSIN0.125 MG PO; +ONDANSETRON HCL4 M2 PO
[2019-06-21 19:09] LABS: HEMATOCRIT 47.2 % (42.0-52.0); HEMOGLOBIN 16.4 gm/dL (14.0-18.0); MCH 33.8 pg (26.0-34.0); MCHC 34.8 g/dL (28.0-37.0); PLATELET COUNT 144 thou/uL (150-400); RBC 4.86 mil/uL (4.50-6.00); RDW 14.5 % (10.5-14.5); WBC 7.6 thou/uL (4.0-11.0)
[2019-06-21 19:11] LABS: URINE BILIRUBIN NEGATIVE (Negative); URINE BLOOD NEGATIVE (Negative); URINE CLARITY CLEAR; URINE COLOR YELLOW; URINE GLUCOSE-RANDOM* NEGATIVE (Negative); URINE KETONES NEGATIVE (Negative); URINE LEUKOCYTES NEGATIVE (Negative); URINE NITRITE NEGATIVE (Negative); URINE PROTEIN (DIPSTICK) NEGATIVE (Negative); URINE SPECIFIC GRAVITY 1.015 (1.005-1.035); URINE UROBILINOGEN 0.2 E.U./dl (0.2-1.0)
[2019-06-21 19:21] LABS: CALCIUM 9.2 mg/dL (8.5-10.1); CREATININE 0.7 mg/dL (0.7-1.3); POTASSIUM 3.8 mmol/L (3.5-5.1)
[2019-06-21 19:27] LABS: ALBUMIN 3.5 g/dL (3.4-5.0); DIRECT BILIRUBIN 0.1 mg/dL (<0.1-0.3); TOTAL BILIRUBIN 0.6 mg/dL (<0.1-1.0); TOTAL PROTEIN 6.6 g/dL (6.4-8.2)
[2019-06-21 19:28] LABS: ABSOLUTE NEUTROPHILS 4.7 thou/uL (1.4-8.2)
[2019-06-21 19:29] LABS: PLATELET ESTIMATE DECREASED
[2019-06-21] MEDS ORDERED: NAPROSYN500 MG PO (19:40)
[2019-06-21 19:49] VITALS: BP 131/80
== END 2019-06-21 19:50 | disposition home or self-care (01) ==
LOC: ER 18:11
PROVIDERS: Physician Assistant
DX: R10.2 Pelvic and perineal pain (principal); E11.9 Type 2 diabetes mellitus without complications; G47.30 Sleep apnea, unspecified; G43.909 Migraine, unspecified, not intractable, without status migrainosus; J44.9 Chronic obstructive pulmonary disease, unspecified; K21.9 Gastro-esophageal reflux disease without esophagitis; I10 Essential (primary) hypertension; E78.00 Pure hypercholesterolemia, unspecified; F41.9 Anxiety disorder, unspecified; F32.9 Major depressive disorder, single episode, unspecified; F17.210 Nicotine dependence, cigarettes, uncomplicated; Z88.8 Allergy status to other drugs, medicaments and biological substances; Z87.19 Personal history of other diseases of the digestive system; Z86.73 Personal history of transient ischemic attack (TIA), and cerebral infarction without residual deficits; Z85.118 Personal history of other malignant neoplasm of bronchus and lung; Z98.890 Other specified postprocedural states; Z90.2 Acquired absence of lung [part of]

== ENCOUNTER 2019-06-28 12:19 | Emergency (ER) | payer OTHER ==
[~2019-06-28] VITALS: Ht 175.3 cm; Wt 78.9 kg
[2019-06-28] MEDS ORDERED: IBUPROFEN 800800 M1 PO (12:32)
[2019-06-28 12:56] LABS: ABSOLUTE NEUTROPHILS 5.9 thou/uL (1.4-8.2); BASOPHILS 0.5 % (0.0-2.0); EOSINOPHILS 2.1 % (0.0-3.0); HEMATOCRIT 50.4 % (42.0-52.0); HEMOGLOBIN 17.6 gm/dL (14.0-18.0); LYMPHOCYTES 20.7 % (24.0-44.0); MONOCYTES 10.7 % (1.0-8.0); PLATELET COUNT 159 thou/uL (150-400); RBC 5.19 mil/uL (4.50-6.00); RDW 14.1 % (10.5-14.5)
[2019-06-28 12:59] LABS: CREATININE 0.9 mg/dL (0.7-1.3)
[2019-06-28 13:00] LABS: MAGNESIUM 2.2 mg/dL (1.8-2.4)
[2019-06-28 13:44] LABS: APTT 25.9 Seconds (24.5-32.8); PROTIME 9.8 Seconds (9.3-11.4)
[2019-06-28 15:56] VITALS: BP 142/82
--- NOTE | 2019-06-28 16:31 | EKG ---
[place] [address] [facility] [place] [address] ELECTROCARDIOGRAM REPORT Name: AUBREY TEAGUE [facility]Gr[facility] [id number] Admission: 06/28/19 Attend Phys: Discharge: Date of : 56 Report #: [id number] THIS REPORT FOR: //name// [facility] ED Test Date: 2019-06-28 Test Time: 12:22:46 Pat Name: AUBREY TEAGUE Department: Room: Gender: M Broadcast Engineer: MUNA : 1960 Requested By: Jose Magallanes Order Number: [id number] MD: Enoch Hall Measurements Intervals [place] Rate: 91 P: 31 [place]: 171 QRS: -46 QRSD: 82 T: 14 QT: 330 QTc: 407 Interpretive Statements Sinus rhythm Inferior infarct, old Compared to ECG 02/03/2019 12:11:32 No significant changes Electronically Signed On 06-28-2019 16:31:36 CDT by Enoch Hall [email or web address] <ELECTRONICALLY SIGNED> By: Enoch Hall MD 06/28/19 1631 1222 1222 MD SAJAN Fragoso
--- NOTE | 2019-07-07 10:43 | HC ---
[facility] [place] [address] CONSULTATION Name: AUBREY TEAGUE Room #: DEP CONSTANCE Marshall#: [id number] Admission: 06/28/19 Attend Phys: Discharge: 06/28/19 Date of : 56 Report #: [id number] THIS REPORT FOR: //name// CC: Nerissa Magallanes DATE OF SERVICE: 06/28/2019 HISTORY OF PRESENT ILLNESS: This is a 58-year-old male patient whom I have seen in the past. I talked to Emergency Room physician extensively today multiple times. I tried to see this patient twice. On the first attempt he was belligerent and was shouting that he wants to go home and there were 2 security people standing there and we could not do much. Subsequently, he calmed down and I came and saw him, he said he had weakness in the left side. He said that [place] and it started around 11:30. He has been admitted with same symptoms in the past and we have never been able to determine any etiology. His situation is very complicated and they are well summarized in multiple physicians' notes as well as my notes in the past. He had frequent visits to the Emergency Room. He was calm when I saw him second time. He tells me that he was agitated because he wanted to go home. I tried to convince him that let me see him and he let me do that. His speech looks intact. He says that he has been admitted here and I reviewed those history. He said he is able to ambulate. I am not sure whether he is having paraesthesia or whether he is having any weakness. To me, he tells me it is mainly paraesthesia now. He has a history of COPD, elevated cholesterol, anxiety, depression, history of lung cancer, hypertension, hernia repair, carpal tunnel, sleep apnea, bradycardia, renal insufficiency, vertigo. He does have a history of diabetes. This was his relevant 14-point review of systems. PAST MEDICAL HISTORY: Positive for similar symptoms. FAMILY HISTORY: Negative for early age stroke. SOCIAL HISTORY: He does not give that, but he smokes. PHYSICAL EXAMINATION: Indicate he is alert. He is responsive. He is oriented and on my examination it looks like he is competent to make his decision. Cranial nerve examination does not appear to be showing any definite abnormality. He does have subjective numbness on the left side, but he moves his leg and he walked in there. The movement are variable when checked in 2 different locations. He could cooperate with the fundus examination. Cardiac and respiratory examinations appear unremarkable. Blood pressure is 142/82, respiration is 15, pulse is 65. [address] [address] CONSULTATION Name: AUBREY TEAGUE Room #: DEP CONSTANCE Marshall#: [id number] Admission: 06/28/19 Attend Phys: Discharge: 06/28/19 Date of : 56 Report #: [id number] LABORATORY DATA: Indicated normal white count. His GFR is actually 86. I reviewed his CT scan as well as MRI films with the radiologist. CT scan does show a lesion in the left occipital lobe, but that was present in August also. MRA looks mostly unremarkable. The patient continued to insist that he wants to go home. IMPRESSION: This is a difficult management problem. This is because of the things summarized in my prior notes. This patient always provides very poor history and we have talked to him about the consequences of doing that. Today also, he does not want to listen to the medical advice. He wants to go home. I talked to him that he needs some contrast study. I think the best will be to do a CT angio of the head and neck because the images of MRA are not very good and is masked by artifact. He refused that. He basically wants to go home and whatever I can tell on my examination, he is not a threat to himself or to anybody. He understands the consequences and has been admitted here before without finding any cause for his symptoms. In these circumstances neurologically I do not have anything specific to add. Neurologically, I told him he can sign AMA and he can go and he is willing to do that. He can take an aspirin and workup done with his primary. I will defer to Emergency Room doctor about anything which needs to be done psychiatrically in this patient. About 50 minutes of time was spent taking care of this patient today and majority of that time was spent counseling the patient and coordinating his care by talking to. DICTATION ENDS HERE <ELECTRONICALLY SIGNED> By: Bob Ellis MD 07/07/19 1043 1645 0311 Bob Ellis MD /nt
== END 2019-06-28 16:36 | disposition left against medical advice (07) ==
LOC: ER 12:19
PROVIDERS: Emergency Medicine
DX: G93.89 Other specified disorders of brain (principal); R20.2 Paresthesia of skin; J44.9 Chronic obstructive pulmonary disease, unspecified; E78.00 Pure hypercholesterolemia, unspecified; F41.9 Anxiety disorder, unspecified; F32.9 Major depressive disorder, single episode, unspecified; I10 Essential (primary) hypertension; G47.30 Sleep apnea, unspecified; K21.9 Gastro-esophageal reflux disease without esophagitis; G43.909 Migraine, unspecified, not intractable, without status migrainosus; E11.9 Type 2 diabetes mellitus without complications; F17.210 Nicotine dependence, cigarettes, uncomplicated; Z85.118 Personal history of other malignant neoplasm of bronchus and lung; Z90.2 Acquired absence of lung [part of]; Z86.711 Personal history of pulmonary embolism; Z88.8 Allergy status to other drugs, medicaments and biological substances

== ENCOUNTER 2019-07-21 06:52 | Emergency (ER) | payer OTHER ==
[~2019-07-21] VITALS: Ht 175.3 cm; Wt 77.1 kg
[2019-07-21 07:11] LABS: URINE BILIRUBIN NEGATIVE (Negative); URINE BLOOD NEGATIVE (Negative); URINE CLARITY CLEAR; URINE COLOR YELLOW; URINE GLUCOSE-RANDOM* NEGATIVE (Negative); URINE KETONES NEGATIVE (Negative); URINE LEUKOCYTES NEGATIVE (Negative); URINE NITRITE NEGATIVE (Negative); URINE PROTEIN (DIPSTICK) NEGATIVE (Negative); URINE UROBILINOGEN 0.2 E.U./dl (0.2-1.0)
[2019-07-21 07:16] LABS: BASOPHILS 1.2 % (0.0-2.0); EOSINOPHILS 2.4 % (0.0-3.0); HEMATOCRIT 46.6 % (42.0-52.0); LYMPHOCYTES 20.8 % (24.0-44.0); MCH 34.1 pg (26.0-34.0); MCHC 34.4 g/dL (28.0-37.0); MCV 99.4 fL (80.0-100.0); MONOCYTES 11.3 % (1.0-8.0); PLATELET COUNT 150 thou/uL (150-400); POLYS 64.3 % (36.0-66.0); RBC 4.69 mil/uL (4.50-6.00); RDW 14.1 % (10.5-14.5); WBC 9.3 thou/uL (4.0-11.0)
[2019-07-21 07:22] LABS: CALCIUM 9.1 mg/dL (8.5-10.1); CREATININE 0.9 mg/dL (0.7-1.3)
[2019-07-21 07:28] LABS: ALBUMIN 3.4 g/dL (3.4-5.0); TOTAL BILIRUBIN 0.3 mg/dL (<0.1-1.0); TOTAL PROTEIN 6.5 g/dL (6.4-8.2)
[2019-07-21 09:18] VITALS: BP 127/65
[2019-07-21] MEDS ORDERED: DOXYCYCLINE 10100 MG PO (09:19)
== END 2019-07-21 09:18 | disposition home or self-care (01) ==
LOC: ER 06:52
PROVIDERS: Emergency Medicine
DX: N50.811 Right testicular pain (principal); F17.210 Nicotine dependence, cigarettes, uncomplicated; J44.9 Chronic obstructive pulmonary disease, unspecified; E78.00 Pure hypercholesterolemia, unspecified; F41.9 Anxiety disorder, unspecified; F32.9 Major depressive disorder, single episode, unspecified; I10 Essential (primary) hypertension; G47.30 Sleep apnea, unspecified; K21.9 Gastro-esophageal reflux disease without esophagitis; G43.909 Migraine, unspecified, not intractable, without status migrainosus; E11.9 Type 2 diabetes mellitus without complications; Z85.118 Personal history of other malignant neoplasm of bronchus and lung; Z86.73 Personal history of transient ischemic attack (TIA), and cerebral infarction without residual deficits; Z90.2 Acquired absence of lung [part of]; Z88.4 Allergy status to anesthetic agent

== ENCOUNTER 2019-10-30 17:55 | Emergency (ER) | payer OTHER ==
[~2019-10-30] VITALS: Ht 175.3 cm; Wt 79.4 kg
[~2019-10-30 17:55] MED LIST changes: +DOXYCYCLINE 10100 MG PO
[2019-10-30 18:36] LABS: ABSOLUTE NEUTROPHILS 11.5 thou/uL (1.4-8.2); BASOPHILS 0.4 % (0.0-2.0); HEMATOCRIT 53.2 % (42.0-52.0); HEMOGLOBIN 18.5 gm/dL (14.0-18.0); LYMPHOCYTES 16.4 % (24.0-44.0); MCH 33.7 pg (26.0-34.0); MCHC 34.9 g/dL (28.0-37.0); MCV 96.8 fL (80.0-100.0); MONOCYTES 10.1 % (1.0-8.0); PLATELET COUNT 173 thou/uL (150-400); POLYS 71.1 % (36.0-66.0); RDW 13.9 % (10.5-14.5); WBC 18.1 thou/uL (4.0-11.0)
[2019-10-30 18:39] LABS: CREATININE 0.8 mg/dL (0.7-1.3)
[2019-10-30 18:44] LABS: ALBUMIN 4.1 g/dL (3.4-5.0); TOTAL BILIRUBIN 0.8 mg/dL (<0.1-1.0); TOTAL PROTEIN 8.2 g/dL (6.4-8.2)
[2019-10-30] MEDS ORDERED: PROTONIX40 MG PO (21:08)
[2019-10-30] MEDS ORDERED: ULTRAM 50MG TAB50 MG PO (21:08)
[2019-10-30] MEDS ORDERED: COMPAZINE10 MG PO (21:08)
[2019-10-30] MEDS ORDERED: ZOFRAN ODT4 MG PO (21:08)
[2019-10-30 21:19] VITALS: BP 124/84
== END 2019-10-30 21:19 | disposition home or self-care (01) ==
LOC: ER 17:55
PROVIDERS: Emergency Medicine
DX: R10.13 Epigastric pain (principal); R11.2 Nausea with vomiting, unspecified; I10 Essential (primary) hypertension; E78.00 Pure hypercholesterolemia, unspecified; K21.9 Gastro-esophageal reflux disease without esophagitis; J44.9 Chronic obstructive pulmonary disease, unspecified; G47.30 Sleep apnea, unspecified; G43.909 Migraine, unspecified, not intractable, without status migrainosus; F41.9 Anxiety disorder, unspecified; F32.9 Major depressive disorder, single episode, unspecified; F17.210 Nicotine dependence, cigarettes, uncomplicated; Z86.73 Personal history of transient ischemic attack (TIA), and cerebral infarction without residual deficits; Z85.118 Personal history of other malignant neoplasm of bronchus and lung; Z88.8 Allergy status to other drugs, medicaments and biological substances

== ENCOUNTER 2019-11-16 17:51 | Emergency (ER) | payer OTHER ==
[~2019-11-16] VITALS: Ht 175.3 cm; Wt 77.1 kg
[~2019-11-16 17:51] MED LIST changes: +COMPAZINE10 MG PO
[2019-11-16 18:15] LABS: HEMATOCRIT 50.7 % (42.0-52.0); HEMOGLOBIN 17.4 gm/dL (14.0-18.0); MCH 33.5 pg (26.0-34.0); MCHC 34.2 g/dL (28.0-37.0); MCV 97.8 fL (80.0-100.0); PLATELET COUNT 168 thou/uL (150-400); RBC 5.19 mil/uL (4.50-6.00); RDW 14.2 % (10.5-14.5)
[2019-11-16 18:20] LABS: ANION GAP 8 mmol/L (7-16); BUN 22 mg/dL (7-18); CALCIUM 10.1 mg/dL (8.5-10.1); CHLORIDE 105 mmol/L (98-107); CO2 28 mmol/L (21-32); CREATININE 0.8 mg/dL (0.7-1.3); GLUCOSE 107 mg/dL (74-106); POTASSIUM 3.5 mmol/L (3.5-5.1); SODIUM 141 mmol/L (136-145)
[2019-11-16 18:29] LABS: BE(vivo) 1.4 mmol/L (-2 to +3); HCO3 25.3 mmol/L (22.0-26.0); PCO2 38.1 mmHg (35.0-45.0); sO2 93.8 % (92.0-98.0)
[2019-11-16 18:30] LABS: ALBUMIN 3.9 g/dL (3.4-5.0); SGOT 13 U/L (15-37); SGPT 20 U/L (30-65); TOTAL BILIRUBIN 0.5 mg/dL (<0.1-1.0); TOTAL PROTEIN 7.6 g/dL (6.4-8.2); TROPONIN-I <0.06 ng/mL (<0.06)
[2019-11-16 18:39] LABS: ABSOLUTE NEUTROPHILS 4.7 thou/uL (1.4-8.2); PLATELET ESTIMATE NORMAL
[2019-11-16] MEDS ORDERED: LEVAQUIN 750 M750 MG PO ×2 (19:44→19:45)
[2019-11-16] MEDS ORDERED: PREDNISONE 20 M20 MG PO (19:44)
[2019-11-16 19:53] VITALS: BP 139/73
--- NOTE | 2019-11-17 08:30 | EKG ---
[place] [address] [place] [address] ELECTROCARDIOGRAM REPORT Name: AUBREY TEAGUE Room #: DEP Rolando#: [id number] Admission: 11/16/19 Attend Phys: Discharge: 11/16/19 Date of : 56 Report #: [id number] THIS REPORT FOR: //name// 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 Wellness Practitioner: ESHEETS : 1960 Requested By: Krista Palacios Order Number: [id number] MD: Abimael Montano Measurements Intervals [place] Rate: 90 P: 2 [place]: 144 QRS: -39 QRSD: 127 T: 12 QT: 339 QTc: 415 Interpretive Statements Sinus rhythm Probable anteroseptal infarct, recent Compared to ECG 06/28/2019 12:22:46 Septal Q waves are more prominent Electronically Signed On 11-17-2019 8:29:57 PRECISION AIRCRAFT SYSTEMS ASSEMBLER by Abimael Montano [email or web address] <ELECTRONICALLY SIGNED> By: Abimael Montano MD, [facility] 11/17/19 0829 24 24 Abimael Montano MD, FAC /EPI
== END 2019-11-16 19:54 | disposition home or self-care (01) ==
LOC: ER 17:51
PROVIDERS: Physician Assistant
DX: J44.1 Chronic obstructive pulmonary disease with (acute) exacerbation (principal); I10 Essential (primary) hypertension; E78.00 Pure hypercholesterolemia, unspecified; E11.9 Type 2 diabetes mellitus without complications; G43.909 Migraine, unspecified, not intractable, without status migrainosus; G47.30 Sleep apnea, unspecified; F41.9 Anxiety disorder, unspecified; F32.9 Major depressive disorder, single episode, unspecified; F17.210 Nicotine dependence, cigarettes, uncomplicated; Z85.118 Personal history of other malignant neoplasm of bronchus and lung; Z86.73 Personal history of transient ischemic attack (TIA), and cerebral infarction without residual deficits; Z88.8 Allergy status to other drugs, medicaments and biological substances

== ENCOUNTER 2020-02-10 10:30 | Emergency (ER) | payer OTHER ==
[~2020-02-10] VITALS: Ht 175.3 cm; Wt 77.1 kg
[~2020-02-10 10:30] MED LIST changes: +LEVAQUIN 750 M750 MG PO
[2020-02-10 11:42] LABS: ABSOLUTE NEUTROPHILS 4.9 thou/uL (1.4-8.2); BASOPHILS 0.7 % (0.0-2.0); EOSINOPHILS 1.5 % (0.0-3.0); HEMATOCRIT 50.2 % (42.0-52.0); HEMOGLOBIN 17.4 gm/dL (14.0-18.0); LYMPHOCYTES 20.1 % (24.0-44.0); MCHC 34.7 g/dL (28.0-37.0); MONOCYTES 10.9 % (1.0-8.0); PLATELET COUNT 156 thou/uL (150-400); POLYS 66.8 % (36.0-66.0); RBC 5.12 mil/uL (4.50-6.00); RDW 13.7 % (10.5-14.5); WBC 7.4 thou/uL (4.0-11.0)
[2020-02-10 11:56] LABS: ANION GAP 9 mmol/L (7-16); BUN 24 mg/dL (7-18); CALCIUM 9.8 mg/dL (8.5-10.1); CHLORIDE 101 mmol/L (98-107); CO2 27 mmol/L (21-32); CREATININE 0.7 mg/dL (0.7-1.3); GLUCOSE 128 mg/dL (74-106); POTASSIUM 3.7 mmol/L (3.5-5.1); SODIUM 137 mmol/L (136-145)
[2020-02-10 12:00] LABS: DIRECT BILIRUBIN < 0.1 mg/dL (<0.1-0.2); LIPASE 303 U/L (73-393); SGOT 11 U/L (15-37); SGPT 14 U/L (30-65); TOTAL BILIRUBIN 0.5 mg/dL (<0.1-1.0); TOTAL PROTEIN 7.1 g/dL (6.4-8.2)
[2020-02-10 13:22] LABS: URINE BILIRUBIN NEGATIVE (Negative); URINE BLOOD 1+ (Negative); URINE CLARITY CLEAR; URINE COLOR YELLOW; URINE GLUCOSE-RANDOM* NEGATIVE (Negative); URINE KETONES NEGATIVE (Negative); URINE LEUKOCYTES-REFLEX NEGATIVE (Negative); URINE NITRITE-REFLEX NEGATIVE (Negative); URINE PROTEIN (DIPSTICK) NEGATIVE (Negative); URINE UROBILINOGEN 0.2 E.U./dl (0.2-1.0)
[2020-02-10 13:30] LABS: BACTERIA-REFLEX 1-9 Few /HPF (None Seen); CASTS None Seen /LPF (None Seen); CRYSTALS None Seen /LPF (None Seen); SQUAMOUS 0-3 Few /LPF (0-3); URINE RBC 3-10 Few /HPF (0-2); URINE WBC-REFLEX 0-5 Rare /HPF (0-5)
[2020-02-10 15:26] VITALS: BP 165/78
== END 2020-02-10 15:33 | disposition home or self-care (01) ==
LOC: ER 10:30
PROVIDERS: Emergency Medicine
DX: J06.9 Acute upper respiratory infection, unspecified (principal); J44.9 Chronic obstructive pulmonary disease, unspecified; I10 Essential (primary) hypertension; G43.909 Migraine, unspecified, not intractable, without status migrainosus; K21.9 Gastro-esophageal reflux disease without esophagitis; E11.9 Type 2 diabetes mellitus without complications; F17.210 Nicotine dependence, cigarettes, uncomplicated; Z86.73 Personal history of transient ischemic attack (TIA), and cerebral infarction without residual deficits; Z79.4 Long term (current) use of insulin; Z79.899 Other long term (current) drug therapy

== ENCOUNTER 2020-08-08 12:24 | Observation (INO) | payer OTHER ==
[~2020-08-08] VITALS: Ht 175.3 cm; Wt 78.0 kg
[2020-08-08 12:26] VITALS: BP 159/87
[2020-08-08 12:51] LABS: HEMATOCRIT 48.9 % (42.0-52.0); HEMOGLOBIN 17.3 gm/dL (14.0-18.0); MCH 34.3 pg (26.0-34.0); MCHC 35.3 g/dL (28.0-37.0); MCV 97.1 fL (80.0-100.0); RBC 5.03 mil/uL (4.50-6.00); WBC 8.1 thou/uL (4.0-11.0)
[2020-08-08 13:03] LABS: CALCIUM 9.8 mg/dL (8.5-10.1); CREATININE 0.7 mg/dL (0.7-1.3); POTASSIUM 3.7 mmol/L (3.5-5.1)
[2020-08-08 13:16] LABS: ALBUMIN 4.1 g/dL (3.4-5.0); TOTAL BILIRUBIN 0.6 mg/dL (0.2-1.0); TOTAL PROTEIN 7.6 g/dL (6.4-8.2); TROPONIN-I 0.27 ng/mL (<0.06)
--- NOTE | 2020-08-08 14:00 | EKG ---
[facility] [place] [address] ELECTROCARDIOGRAM REPORT Name: AUBREY TEAGUE Room #: REG M.R.#: [id number] Admission: 08/08/20 Attend Phys: Discharge: Date of : 56 Report #: [id number] THIS REPORT FOR: cc: Nerissa King Christine L. DO Santiago, Patrick MD [facility] ~ THIS REPORT FOR: //name// [facility] ED Test Date: 2020-08-08 Test Time: 12:49:02 Pat Name: AUBREY TEAGUE Department: Room: Gender: Improvement Intern: : 1960 Requested By: Krista Palacios Order Number: [id number] MD: Melchor Funez Measurements Intervals [place] Rate: 70 P: 7 [place]: 177 QRS: -33 QRSD: 96 T: 21 QT: 389 QTc: 420 Interpretive Statements Sinus rhythm Inferior infarct, old Compared to ECG 11/16/2019 18:25:39 No significant changes Electronically Signed On 08-08-2020 14:00:40 CDT by Melchor Funez [email or web address] <ELECTRONICALLY SIGNED> By: Melchor Funez MD, FACC 08/08/20 1400 1249 1249 Melchor Funez MD, FAC /EPI
[2020-08-08 14:42] VITALS: BP 154/92
[2020-08-08 16:00] LABS: FOLIC ACID 12.1 ng/mL (8.6-58.9); TSH 0.943 uIU/mL (0.358-3.740)
[2020-08-08 17:00] VITALS: BP 144/77
--- NOTE | 2020-08-08 17:04 | NUR ---
ASSUMED CARE OF PT AT APPROX 1630 FROM ESCAPEMENT MAKER. NO INTERVENTIONS. PT A&OX4, NO C/O PAIN. R GROIN SITE CDI, NO BRUISING OR HEMATOMA. PT AGITATED, REPORTS "I WANT TO LEAVE NOW". BEDREST DONE AT 1900. ADMISSION ORDERS AND INSTRUCTIONS COMPLETE. WILL CONTINUE TO MONITOR AND FOLLOW POC.
--- NOTE | 2020-08-08 17:27 | CATHLAB ---
[facility] [place] [address] INVASIVE PROCEDURE REPORT Name: AUBREY TEAGUE Room #: 219-P ADM IN M.R.#: [id number] Admission: 08/08/20 Attend Phys: Rupert Rothman MD Discharge: Date of : 56 Report #: [id number] THIS REPORT FOR: cc: Nerissa King Christine L. DO Mancuso, Gerald M. MD [facility] ~ APPROVED REPORT Study performed: 08/08/2020 14:47:54 Patient Details Patient Status: In-Patient Room #: The patient is a 59 year-old male Event Personnel Mckinley Gonzáles Brand Development Manager, Sharri Hall RN RN, Marisol Feldman Paschal, Ja'net RTR Monitor, Rivas, Christina Monitor Procedures Performed Art Access - R femoral artery* 86305 Initial Mod Sed Same Phys/QHP Gr5y [id number] Left Heart Cath w/or w/o Coronaries [id number] [facility] Aortogram Abdominal Peripheral Angio 875431 Hemostasis w/ Mynx Indication Chest pain Procedure Narrative The patient was brought urgently to the Cardiac Catheterization Laboratory and was prepped and draped in a sterile manner. The Right Groin^ was infiltrated with 1% Lidocaine subcutaneous anesthesia. A PINNACLE 6FR Sheath #[id number] sheath was inserted into the RFA^. Coronary angiography was performed using coronary diagnostic catheters. The right coronary system was accessed and visualized with a JR 4 catheter. The left coronary system was accessed and visualized with a JL 4 catheter. The left ventricle was accessed and visualized with a Pigtail catheter. Left ventriculogram was performed in TAVAREZ projection. An aortogram of the abdominal aorta was performed. Pre-demployment femoral angiogram was performed . Closure device was deployed with a 6 Fr Mynx. The patient tolerated the procedure well and there were no complications associated with the procedure. There was no hematoma. [facility] [place] [address] INVASIVE PROCEDURE REPORT Name: NATHANAELAUBREY NIX MICKEY Room #: 219-P [facility] IN .R.#: [id number] Admission: 08/08/20 Attend Phys: Rupert Rothman MD Discharge: Date of : 56 Report #: [id number] Intraoperative Conscious Sedation Sedation start time: 15:27 Case end Time: 15:54 Fentanyl 50 mcg Versed 1 mg Fluoro Time: 2.30 minutes Dose: DAP 5929.00 cGycm2 698 mGy Contrast Type and Amount: Visipaque 100 ml Hemodynamics The aortic pressure is 162/93 mmHg with a mean of 109 mmHg. The left ventricular pressure is 149/3 mmHg with a mean of mmHg. The left ventricular end diastolic pressure is 13 mmHg. Conclusion 1. Normal left jugular size and systolic function lower limits of normal EF 50 to 55% with 1+ mitral insufficiency. #2 abdominal aortogram mild aortic ectasia but no aneurysm is noted tortuous iliac system widely patent. #3 left main large and free of disease giving rise to LAD and circumflex #4 the left coronary system LAD circumflex are widely patent there is no significant occlusive disease. #5 normal right coronary artery no occlusive disease anatomically dominant. Recommendations and plan: Continue aggressive risk factor modification no indication for coronary intervention. Etiology of the 0.27 troponin is not clear these are widely patent and no occlusive disease is noted. <ELECTRONICALLY SIGNED> By: Mckinley Gonzáles MD, [facility] 08/08/201726 26 26 Mckinley Gonzáles MD, FACC /INF
[2020-08-08 18:47] VITALS: BP 154/92
[2020-08-08 19:22] VITALS: BP 154/92
--- NOTE | 2020-08-08 19:23 | NUR ---
PT WAS DISCHARGED AFTER BEDREST WAS COMPLETE. DISCHARGE ORDERS AND INSTRUCTION WERE COMPLETE. TELE AND IV DC'D. A CAB VOUCHER WAS PROVIDED AND HE WAITED IN ER FOR THE RIDE.
[2020-08-09 02:06] LABS: GLYCOHEMOGLOBIN (HGB A1C) 5.8 % (4.8-5.6)
== END 2020-08-08 19:07 | disposition home or self-care (01) ==
LOC: ER 12:24 → 2N 14:07 → EROBS 14:07 → 2N 14:07
PROVIDERS: Nurse Practitioner; Physician Assistant; ADMIT Internal Medicine; ATTEND Internal Medicine
DX: R07.89 Other chest pain (principal); J44.9 Chronic obstructive pulmonary disease, unspecified; E11.9 Type 2 diabetes mellitus without complications; I10 Essential (primary) hypertension; E78.5 Hyperlipidemia, unspecified; J96.21 Acute and chronic respiratory failure with hypoxia; I21.4 Non-ST elevation (NSTEMI) myocardial infarction; M25.512 Pain in left shoulder; E78.00 Pure hypercholesterolemia, unspecified; M19.90 Unspecified osteoarthritis, unspecified site; F17.210 Nicotine dependence, cigarettes, uncomplicated; Z85.118 Personal history of other malignant neoplasm of bronchus and lung; Z79.899 Other long term (current) drug therapy; Z86.73 Personal history of transient ischemic attack (TIA), and cerebral infarction without residual deficits
CPT/HCPCS: 10081

== ENCOUNTER 2020-09-10 14:50 | Emergency (ER) | payer OTHER ==
[~2020-09-10] VITALS: Ht 175.3 cm; Wt 77.1 kg
[2020-09-10 14:51] VITALS: BP 142/93
== END 2020-09-10 16:07 | disposition home or self-care (01) ==
LOC: ER 14:50
DX: S43.402A Unspecified sprain of left shoulder joint, initial encounter (principal); J44.9 Chronic obstructive pulmonary disease, unspecified; G43.909 Migraine, unspecified, not intractable, without status migrainosus; K21.9 Gastro-esophageal reflux disease without esophagitis; E11.9 Type 2 diabetes mellitus without complications; I10 Essential (primary) hypertension; F17.210 Nicotine dependence, cigarettes, uncomplicated; Z79.899 Other long term (current) drug therapy; Z88.8 Allergy status to other drugs, medicaments and biological substances; W18.2XXA Fall in (into) shower or empty bathtub, initial encounter; Y93.89 Activity, other specified; Y92.89 Other specified places as the place of occurrence of the external cause; Y99.8 Other external cause status